=== PATIENT | male | born 1955 | race Caucasian/White ===

== ENCOUNTER 2019-03-05 08:49 | Emergency (ER) | payer OTHER ==
[2019-03-05] MEDS ORDERED: Penicillin V Potassium 250 MG Tab PO ONE (09:15)
--- NOTE | 2019-03-05 09:21 | EDM.PDOC ---
ED HPI GENERAL MEDICAL PROBLEM - General Chief Complaint: General Stated Complaint: sweeling Time Seen by Provider: 03/05/19 09:10 Source of Information: Reports: Patient History Limitations: Reports: No Limitations - History of Present Illness INITIAL COMMENTS - FREE TEXT/NARRATIVE: 63 yo male here with R facial swelling. He denies pain. The staff at [facility] where he resides became aware of this today and sent him to the ER. No fever reported. Has no complaint of pain. Has a bushy torres so this problem may have been brewing for awhile, not evident. It was reported that his R hand was also swollen, but patient states this is the way the hand always looks. Onset: Gradual Duration: Day(s):, Getting Worse Location: Reports: Face (R side) Quality: Reports: Other (denies pain) Severity: Moderate Improves with: Reports: None Worsens with: Reports: Other (time) Context: Reports: Other (see HPI) Associated Symptoms: Reports: No Other Symptoms. Denies: Fever/Chills Treatments RECORD KEEPER: Reports: Other (see below) (none) - Related Data Allergies Allergy/AdvReac Type Severity Reaction Status Date / Time indomethacin Allergy Cannot Verified 03/05/19 09:05 Remember perphenazine Allergy Cannot Verified 03/05/19 09:05 Remember Home Meds: Home Meds Aspirin [Halfprin] 1 tab PO DAILY 03/05/19 [History] Cholecalciferol (Vitamin D3) [Vitamin D3] 1 tab PO DAILY 03/05/19 [History] Docusate Sodium [Colace] 1 cap PO DAILY 03/05/19 [History] Lisinopril 1 tab PO DAILY 03/05/19 [History] [place] Carbonate [Eskalith CR] 900 mg PO BEDTIME 03/05/19 [History] Multivitamins/Min/Ca/FA/Iron [Thera-M] 1 tab PO DAILY 03/05/19 [History] Pantoprazole [ProTONIX] 1 tab PO BEDTIME 03/05/19 [History] atorvaSTATin [Lipitor] 1 tab PO BEDTIME 03/05/19 [History] cloZAPine 400 mg PO BEDTIME 03/05/19 [History] metFORMIN HCl [Metformin HCl] 1 tab PO BID 03/05/19 [History] Past Medical History HEENT History: Reports: Impaired Vision Endocrine/Metabolic History: Reports: Obesity/BMI 30+ - Past Surgical History Head Surgeries/Procedures: Reports: None HEENT Surgical History: Reports: None Endocrine Surgical History: Reports: None Dermatological Surgical History: Reports: None Social & Family History - Tobacco Use Smoking Status *Q: Former Smoker Used Tobacco, but Quit: Yes Month/Year Tobacco Last Used: 2014 Second Hand Smoke Exposure: No - Caffeine Use Caffeine Use: Reports: Coffee - Recreational Drug Use Recreational Drug Use: No ED ROS GENERAL - Review of Systems Review Of Systems: ROS reveals no pertinent complaints other than HPI. Constitutional: Reports: No Symptoms HEENT: Reports: Other (R facial swelling). Denies: Dental Pain Respiratory: Reports: No Symptoms Skin: Reports: No Symptoms Neurological: Reports: No Symptoms ED EXAM, GENERAL - Physical Exam Exam: See Below Exam Limited By: No Limitations General Appearance: Alert, WD/WN, No Apparent Distress, Obese Eye Exam: Bilateral Eye: Normal Inspection, PERRL Ears: Normal External Exam, Normal Canal, Hearing Grossly Normal, Normal TMs Ear Exam: Bilateral Ear: Auricle Normal, Canal Normal Nose: Normal Inspection, No Blood Throat/Mouth: Normal Inspection, Normal Lips, Normal Oropharynx, Normal Voice, No Airway Compromise, Other (R posterior most molar is decayed nearly to the gum line and corresponds with area of swelling of the R mandible.). No: Normal Teeth Head: Atraumatic, Normocephalic Neck: Normal Inspection Respiratory/Chest: No Respiratory Distress, Lungs Clear, Normal Breath Sounds, No Accessory Muscle Use Cardiovascular: Regular Rate, Rhythm, No Edema Extremities: Normal Inspection Neurological: Alert, Oriented, CN II-XII Intact, Normal Cognition, No Motor/ Sensory Deficits Psychiatric: Normal Affect, Normal Mood Skin Exam: Warm, Dry, Intact, Normal Color, No Rash Course - Vital Signs Last Recorded V/S: Last Vital Signs Temp 36.2 C 03/05/19 08:52 Pulse 72 03/05/19 08:52 Resp 16 03/05/19 08:52 BP 151/65 H 03/05/19 08:52 Pulse Ox 97 03/05/19 08:52 - Orders/Labs/Meds Orders: Active Orders 24 hr Category Date Time Status Penicillin V Potassium [Veetids] Med 03/05/19 09:15 Once 500 mg PO ONETIME ONE Medication Orders Penicillin V Potassium (Veetids) 500 mg PO ONETIME ONE Stop: 03/05/19 09:16 Meds: Medications Generic Name Dose Route Start Last Admin Trade Name Ottoniel PRN Reason Stop Dose Admin Penicillin V Potassium 500 mg 03/05/19 09:15 Veetids PO 03/05/19 09:16 ONETIME ONE Departure - Departure Time of Disposition: 09:25 Disposition: Home, Self-Care 01 Condition: Fair Clinical Impression: Dental abscess - Discharge Information *PRESCRIPTION DRUG MONITORING PROGRAM REVIEWED*: No *COPY OF PRESCRIPTION DRUG MONITORING REPORT IN PATIENT LULÚ: No Instructions: Dental Abscess Referrals: PCP,None [Primary Care Provider] - Additional Instructions: Give Penicillin every 6 hrs until gone. Will need dental recheck in 10 days. Acetaminophen as needed for pain relief. Recheck with primary care provider sooner if worse. - My Orders Last 24 Hours: My Active Orders 03/05/19 09:15 Penicillin V Potassium [Veetids] 500 mg PO ONETIME ONE - Assessment/Plan Last 24 Hours: My Active Orders 03/05/19 09:15 Penicillin V Potassium [Veetids] 500 mg PO ONETIME ONE
== END 2019-03-05 10:45 | disposition home or self-care (01) ==
LOC: JP.ED 08:49
DX: K04.7 Periapical abscess without sinus (principal); K02.9 Dental caries, unspecified; E66.9 Obesity, unspecified; Z88.6 Allergy status to analgesic agent; Z87.891 Personal history of nicotine dependence; Z79.82 Long term (current) use of aspirin; Z68.34 Body mass index [BMI] 34.0-34.9, adult; Z79.899 Other long term (current) drug therapy
CPT/HCPCS: 99283; A9270

== ENCOUNTER 2020-05-08 10:50 | Inpatient (IN) | payer OTHER, MEDICARE ==
--- NOTE | 2020-05-08 11:27 | EDM.PDOC ---
ED HPI GENERAL MEDICAL PROBLEM - General Chief Complaint: Neuro Symptoms/Deficits Stated Complaint: fell at home Time Seen by Provider: 05/08/20 11:16 Source of Information: Reports: Patient, RN Notes Reviewed History Limitations: Reports: No Limitations - History of Present Illness INITIAL COMMENTS - FREE TEXT/NARRATIVE: 64-year-old gentleman presents emergency department today via EMS services for fall unknown duration he is a resident of [facility] and staff say he has been more weak than usual usually cares for himself and can ambulate without difficulty however it took two individuals to help load him into the cot for the ambulance. [place] stroke scale was negative per EMS. He has no complaints at this time denies any fevers nausea vomiting shortness of breath chest pain no weakness he does have difficulty finding words but he states this is his normal baseline, positive for COVID-19 30 days ago Headache Pain Score (Numeric/FACES): 3 - Related Data Allergies Allergy/AdvReac Type Severity Reaction Status Date / Time indomethacin Allergy Cannot Verified 05/08/20 10:53 Remember perphenazine Allergy Cannot Verified 05/08/20 10:53 Remember Home Meds: Home Meds Aspirin [Halfprin] 81 mg PO DAILY 03/05/19 [History] Cholecalciferol (Vitamin D3) [Vitamin D3] 2,000 unit PO DAILY 03/05/19 [History] Docusate Sodium [Colace] 100 mg PO DAILY 03/05/19 [History] [place] Carbonate [Eskalith CR] 750 mg PO BEDTIME 03/05/19 [History] Pantoprazole [ProTONIX] 40 mg PO BEDTIME 03/05/19 [History] atorvaSTATin [Lipitor] 20 mg PO BEDTIME 03/05/19 [History] cloZAPine 400 mg PO BEDTIME 03/05/19 [History] lisinopriL [Lisinopril] 40 mg PO DAILY 03/05/19 [History] metFORMIN HCl [Metformin HCl] 1,000 mg PO BID 03/05/19 [History] Ascorbic Acid [Vitamin C] 500 mg PO BID 05/08/20 [History] Blood-Glucose Control, Low [True Metrix] 1 each PO DAILY 05/08/20 [History] Multivitamins/Min/Ca/FA/Iron [Thera-M] 1 tab PO DAILY 12/23/20 [History] Zinc 50 mg PO DAILY 05/08/20 [History] diazePAM [Valium] 10 mg PO ASDIRECTED PRN 05/08/20 [History] Past Medical History HEENT History: Reports: Impaired Vision Cardiovascular History: Reports: Hypertension Gastrointestinal History: Reports: GERD Musculoskeletal History: Reports: Gout Psychiatric History: Reports: Addiction, Bipolar, Schizophrenia, Suicide Attempt Endocrine/Metabolic History: Reports: Diabetes, Type II, Obesity/BMI 30+ - Infectious Disease History Infectious Disease History: Reports: Chicken Pox, Mumps, Novel Coronavirus, Other (See Below) (COVID-19) - Past Surgical History Head Surgeries/Procedures: Reports: None HEENT Surgical History: Reports: None Cardiovascular Surgical History: Reports: None GI Surgical History: Reports: None Endocrine Surgical History: Reports: None Musculoskeletal Surgical History: Reports: None Dermatological Surgical History: Reports: None Social & Family History - Tobacco Use Tobacco Use Status *Q: Never Tobacco User - Caffeine Use Caffeine Use: Reports: Soda - Recreational Drug Use Recreational Drug Use: No ED ROS GENERAL - Review of Systems Review Of Systems: See Below Constitutional: Reports: Weakness, Fatigue. Denies: Fever, Chills HEENT: Reports: No Symptoms Respiratory: Reports: No Symptoms Cardiovascular: Reports: No Symptoms GI/Abdominal: Reports: No Symptoms : Reports: No Symptoms Musculoskeletal: Reports: No Symptoms Skin: Reports: No Symptoms Neurological: Reports: No Symptoms ED EXAM, GENERAL - Physical Exam Exam: See Below Exam Limited By: Physical Impairment (Difficulty finding words) General Appearance: Alert, WD/WN, No Apparent Distress Respiratory/Chest: No Respiratory Distress, Lungs Clear, Normal Breath Sounds, No Accessory Muscle Use, Chest Non-Tender Cardiovascular: Regular Rate, Rhythm, No Murmur GI/Abdominal: Soft, Non-Tender Course - Vital Signs Last Recorded V/S: Last Vital Signs Temp 100 F 05/08/20 11:01 Pulse 92 05/08/20 11:01 Resp 15 05/08/20 11:01 BP 145/75 H 05/08/20 11:01 Pulse Ox 97 05/08/20 11:01 - Orders/Labs/Meds Orders: Active Orders 24 hr Category Date Time Status CULTURE URINE [RM] Urgent Lab 05/08/20 12:33 Received cefTRIAXone [Rocephin] 1 gm Med 05/08/20 13:18 Ordered Sodium Chloride 0.9% [Normal Saline] 50 ml IV ONETIME Medication Orders Ceftriaxone Sodium 1 gm/ (Sodium Chloride) 50 mls @ 100 mls/hr IV ONETIME ONE Stop: 05/08/20 13:47 Labs: Laboratory Tests 05/08/20 05/08/20 05/08/20 Range/Units 11:36 11:38 11:38 WBC 18.6 H (4.5-11.0) K/uL RBC 4.34 (4.30-5.90) M/uL Hgb 11.9 L (12.0-15.0) g/dL Hct 36.5 L (40.0-54.0) % MCV 84 (80-98) fL MCH 27 (27-31) pg MCHC 33 (32-36) % Plt Count 191 (150-400) K/uL Neut % (Auto) 80 H (36-66) % Lymph % (Auto) 9 L (24-44) % [place] % (Auto) 9 H (2-6) % Eos % (Auto) 1 L (2-4) % Baso % (Auto) 0 (0-1) % Sodium 137 L (140-148) mmol/L Potassium 4.3 (3.6-5.2) mmol/L Chloride 102 (100-108) mmol/L Carbon Dioxide 25 (21-32) mmol/L Anion Gap 14.3 H (5.0-14.0) mmol/L BUN 15 (7-18) mg/dL Creatinine 1.3 (0.8-1.3) mg/dL Est Cr Clr Drug Dosing 63.84 mL/min Estimated GFR (MDRD) 56 L (>60) Glucose 157 H (74-106) mg/dL Calcium 9.3 (8.5-10.1) mg/dL Total Bilirubin 0.5 D (0.2-1.0) mg/dL AST 13 L (15-37) U/L ALT 30 (12-78) U/L Alkaline Phosphatase 74 (46-116) U/L Troponin I < 0.017 (0.000-0.056) ng/mL Total Protein 6.7 (6.4-8.2) g/dL Albumin 3.4 (3.4-5.0) g/dL Globulin 3.3 (2.3-3.5) g/dL Albumin/Globulin Ratio 1.0 L (1.2-2.2) Urine Color Yellow (YELLOW) Urine Appearance Clear (CLEAR) Urine pH 5.5 (5.0-8.0) Ur Specific Russell 1.020 (1.008-1.030) Urine Protein Negative (NEGATIVE) mg/dL Urine Glucose (UA) Negative (NEGATIVE) mg/dL Urine Ketones Negative (NEGATIVE) mg/dL Urine Occult Blood Negative (NEGATIVE) Urine Nitrite Negative (NEGATIVE) Urine Bilirubin Negative (NEGATIVE) Urine Urobilinogen 0.2 (0.2-1.0) EU/dL Ur Leukocyte Esterase Small H (NEGATIVE) Urine RBC 0-5 (0-5) Urine WBC 10-20 H (0-5) Ur Epithelial Cells Not seen Amorphous Sediment Not seen Urine Bacteria Moderate Urine Mucus Not seen Meds: Medications Generic Name Dose Route Start Last Admin Trade Name Freq PRN Reason Stop Dose Admin Ceftriaxone Sodium 1 gm/ 50 mls @ 100 mls/hr 05/08/20 13:18 Sodium Chloride IV 05/08/20 13:47 ONETIME ONE Departure - Departure Time of Disposition: 13:21 Disposition: Admitted As Inpatient 67 Condition: Fair Clinical Impression: UTI (urinary tract infection) Qualifiers: Urinary tract infection type: acute cystitis Hematuria presence: without hematuria Qualified Code(s): N30.00 - Acute cystitis without hematuria - Discharge Information Referrals: PCP,None [Primary Care Provider] - Forms: ED Department Discharge Sepsis Event Note (ED) - Evaluation Sepsis Screening Result: No Definite Risk - Focused Exam Vital Signs: Vital Signs Temp Pulse Resp BP Pulse Ox 05/08/20 11:01 100 F 92 15 145/75 H 97 05/08/20 10:53 100 F 92 15 145/75 H 97 - My Orders Last 24 Hours: My Active Orders 05/08/20 12:33 CULTURE URINE [RM] Urgent 05/08/20 13:18 cefTRIAXone [Rocephin] 1 gm Sodium Chloride 0.9% [Normal Saline] 50 ml IV ONETIME - Assessment/Plan Last 24 Hours: My Active Orders 05/08/20 12:33 CULTURE URINE [RM] Urgent 05/08/20 13:18 cefTRIAXone [Rocephin] 1 gm Sodium Chloride 0.9% [Normal Saline] 50 ml IV ONETIME Plan: Assessment Acuity = acute Site and laterality = urinary tract infection complicating the patient with kno wn history of schizophrenia and cognitive impairment Etiology = probable bacterial cause Manifestations = weakness Location of injury = Home Lab values = CBC reveals a WBC elevated 18.6 consistent with leukocytosis, CMP unremarkable troponin was negative urinalysis reveals small amount leukocyte Estrace 10-20 WBCs consistent with pyuria cultures pending Plan Call discussed case with hospitalist on-call at 1320 kindly agreed to come evaluate the patient emergency department for admission 1 g Rocephin initiated in the ED This note was dictated using [employer] voice recognition software please call with any questions on syntax or grammar.
[2020-05-08] MEDS ORDERED: cefTRIAXone 1 GM in Sodium Chloride 0.9% 50 ML IV ONE (13:18)
--- NOTE | 2020-05-08 13:34 | PCM.HP.2 ---
H&P History of Present Illness - General Date of Service: 05/08/20 Admit Problem/Dx: Admission Diagnosis/Problem Admission Diagnosis/Problem Urinary tract infection Source of Information: Provider, RN Notes Reviewed. No: Patient History Limitations: Reports: Altered Mental Status (Dementia, confusion) - History of Present Illness Initial Comments - Free Text/Narative: Mr. Cabral is a 64-year-old gentleman who was admitted through the emergency department with increased weakness and fever, secondary to right lung pneumonia. Staff at his assisted living facility had noted marked weakness this morning and he was brought into the emergency department for further evaluation. He has a history of schizophrenia as well as developing dementia with confusion and is unable to provide a meaningful history concerning recent symptoms or review of systems. White blood cell count was noted to be elevated. Urine did show elevation in white blood cells but otherwise no obvious evidence of infection. After admission he did develop significant temperature elevation and blood cultures have been obtained in addition to the previously ordered urine culture. Chest x-ray shows evidence of right lung infiltrate at the base consistent with pneumonia. Headache Pain Score (Numeric/FACES): 3 - Related Data Allergies/Adverse Reactions: Allergies Allergy/AdvReac Type Severity Reaction Status Date / Time indomethacin Allergy Cannot Verified 05/08/20 10:53 Remember perphenazine Allergy Cannot Verified 05/08/20 10:53 Remember Home Medications: Home Meds Aspirin [Halfprin] 81 mg PO DAILY 03/05/19 [History] Cholecalciferol (Vitamin D3) [Vitamin D3] 2,000 unit PO DAILY 03/05/19 [History] Docusate Sodium [Colace] 100 mg PO DAILY 03/05/19 [History] H[place]ley Carbonate [Eskalith CR] 450 mg PO BEDTIME 03/05/19 [History] Pantoprazole [ProTONIX] 40 mg PO BEDTIME 03/05/19 [History] atorvaSTATin [Lipitor] 20 mg PO BEDTIME 03/05/19 [History] cloZAPine 400 mg PO BEDTIME 03/05/19 [History] lisinopriL [Lisinopril] 40 mg PO DAILY 03/05/19 [History] metFORMIN HCl [Metformin HCl] 1,000 mg PO BID 03/05/19 [History] Ascorbic Acid [Vitamin C] 500 mg PO BID 05/08/20 [History] Blood-Glucose Control, Low [True Metrix] 1 each PO DAILY 05/08/20 [History] Hensley Carbonate 300 mg PO BEDTIME 05/08/20 [History] Multivitamins/Min/Ca/FA/Iron [Thera-M] 1 tab PO DAILY 05/08/20 [History] Zinc 50 mg PO DAILY 05/08/20 [History] diazePAM [Valium] 10 mg PO ASDIRECTED PRN 05/08/20 [History] Past Medical History HEENT History: Reports: Impaired Vision Cardiovascular History: Reports: Hypertension Gastrointestinal History: Reports: GERD Musculoskeletal History: Reports: Gout Psychiatric History: Reports: Addiction, Bipolar, Schizophrenia, Suicide Attempt Endocrine/Metabolic History: Reports: Diabetes, Type II, Obesity/BMI 30+ - Infectious Disease History Infectious Disease History: Reports: Chicken Pox, Mumps, Novel Coronavirus, Other (See Below) (COVID-19) - Past Surgical History Head Surgeries/Procedures: Reports: None HEENT Surgical History: Reports: None Cardiovascular Surgical History: Reports: None GI Surgical History: Reports: None Endocrine Surgical History: Reports: None Musculoskeletal Surgical History: Reports: None Dermatological Surgical History: Reports: None Social & Family History - Tobacco Use Tobacco Use Status *Q: Never Tobacco User - Caffeine Use Caffeine Use: Reports: Soda - Recreational Drug Use Recreational Drug Use: No H&P Review of Systems - Review of Systems: Review Of Systems: See Below General: Reports: ROS unobtainable (Secondary to dementia with confusion) Exam - Exam Exam: See Below - Vital Signs Vital Signs: Last Vital Signs Temp 100 F 05/08/20 11:01 Pulse 92 05/08/20 11:01 Resp 15 05/08/20 11:01 BP 145/75 H 05/08/20 11:01 Pulse Ox 97 05/08/20 11:01 Weight: 230 lb - Exam Quality Assessment: DVT Prophylaxis General: Alert, Cooperative, Mild Distress. No: Oriented HEENT: Conjunctiva Clear, Hearing Intact, Mucosa Moist & [place], Normal Nasal Septum, Posterior Pharynx Clear, Pupils Equal Neck: Supple, Trachea Midline, +2 Carotid Pulse wo Bruit Lungs: Clear to Auscultation, Normal Respiratory Effort, Decreased Breath Sounds. No: Rales, Rhonchi, Wheezing Cardiovascular: Regular Rate, Regular Rhythm, Normal S1, Normal S2. No: Systolic Murmur, Diastolic Murmur GI/Abdominal Exam: Soft, Non-Tender, No Organomegaly, No Distention Back Exam: Normal Inspection, Full Range of Motion Extremities: Non-Tender, No Pedal Edema Skin: Warm, Dry Neurological: Cranial Nerves Intact, Strength Equal Bilateral, Normal Speech, Normal Tone, Sensation Intact. No: Focal Deficit Neuro Extensive - Mental Status: Alert, Disorientation to Place, Disorientation to Time, Memory Loss-Remote Events, Memory Loss-Recent Events. No: Oriented x3, Normal Cognition, Memory Intact - Patient Data Lab Results Last 24 hrs: Laboratory Results - last 24 hr 05/08/20 05/08/20 05/08/20 Range/Units 11:36 11:38 11:38 WBC 18.6 H (4.5-11.0) K/uL RBC 4.34 (4.30-5.90) M/uL Hgb 11.9 L (12.0-15.0) g/dL Hct 36.5 L (40.0-54.0) % MCV 84 (80-98) fL MCH 27 (27-31) pg MCHC 33 (32-36) % Plt Count 191 (150-400) K/uL Neut % (Auto) 80 H (36-66) % Lymph % (Auto) 9 L (24-44) % [place] % (Auto) 9 H (2-6) % Eos % (Auto) 1 L (2-4) % Baso % (Auto) 0 (0-1) % Sodium 137 L (140-148) mmol/L Potassium 4.3 (3.6-5.2) mmol/L Chloride 102 (100-108) mmol/L Carbon Dioxide 25 (21-32) mmol/L Anion Gap 14.3 H (5.0-14.0) mmol/L BUN 15 (7-18) mg/dL Creatinine 1.3 (0.8-1.3) mg/dL Est Cr Clr Drug Dosing 63.84 mL/min Estimated GFR (MDRD) 56 L (>60) Glucose 157 H (74-106) mg/dL Calcium 9.3 (8.5-10.1) mg/dL Total Bilirubin 0.5 D (0.2-1.0) mg/dL AST 13 L (15-37) U/L ALT 30 (12-78) U/L Alkaline Phosphatase 74 (46-116) U/L Troponin I < 0.017 (0.000-0.056) ng/mL Total Protein 6.7 (6.4-8.2) g/dL Albumin 3.4 (3.4-5.0) g/dL Globulin 3.3 (2.3-3.5) g/dL Albumin/Globulin Ratio 1.0 L (1.2-2.2) Urine Color Yellow (YELLOW) Urine Appearance Clear (CLEAR) Urine pH 5.5 (5.0-8.0) Ur Specific [place] 1.020 (1.008-1.030) Urine Protein Negative (NEGATIVE) mg/dL Urine Glucose (UA) Negative (NEGATIVE) mg/dL Urine Ketones Negative (NEGATIVE) mg/dL Urine Occult Blood Negative (NEGATIVE) Urine Nitrite Negative (NEGATIVE) Urine Bilirubin Negative (NEGATIVE) Urine Urobilinogen 0.2 (0.2-1.0) EU/dL Ur Leukocyte Esterase Small H (NEGATIVE) Urine RBC 0-5 (0-5) Urine WBC 10-20 H (0-5) Ur Epithelial Cells Not seen Amorphous Sediment Not seen Urine Bacteria Moderate Urine Mucus Not seen Result Diagrams: 05/08/20 11:38 05/08/20 11:38 Sepsis Event Note - Evaluation Sepsis Screening Result: No Definite Risk - Focused Exam Vital Signs: Vital Signs Temp Pulse Resp BP Pulse Ox 05/08/20 11:01 100 F 92 15 145/75 H 97 05/08/20 10:53 100 F 92 15 145/75 H 97 *Q Meaningful Use (ADM) - VTE Risk Assess *Q Each Risk Factor Represents 1 Point: Obesity ( BMI > 25 kg/m2), Serious lung disease including pneumonia Total Score 1 Point Risk Factors: 2 Each Risk Factor Represents 2 Points: Age 60 - 74 Years Total Score 2 Point Risk Factors: 2 Each Risk Factor Represents 3 Points: None Total Score 3 Point Risk Factors: 0 Each Risk Factor Represents 5 Points: None Total Score 5 Point Risk Factors: 0 Venous Thromboembolism Risk Factor Score *Q: 4 Problem List Initiated/Reviewed/Updated: Yes Orders Last 24hrs: Active Orders 24 hr Category Date Time Status Patient Status Manage Transfer [TRANSFER] Routine ADT 05/08/20 13:24 Ordered CULTURE URINE [RM] Urgent Lab 05/08/20 12:33 Received cefTRIAXone [Rocephin] 1 gm Med 05/08/20 13:18 Active Sodium Chloride 0.9% [Normal Saline] 50 ml IV ONETIME Resuscitation Status Routine Resus Stat 05/08/20 13:26 Ordered Medication Orders Ceftriaxone Sodium 1 gm/ (Sodium Chloride) 50 mls @ 100 mls/hr IV ONETIME ONE Stop: 05/08/20 13:47 Assessment/Plan Comment:: ASSESSMENT AND PLAN RIGHT LUNG PNEUMONIA-he had developed significant weakness over the last 24 hours with a fall earlier today at the assisted living facility. On evaluation in the emergency room there is evidence of right lung infiltrate as well as leukocytosis. Initially felt to have possible urinary tract infection and a urine culture is pending -Blood and urine culture pending -IV fluids for hydration -IV ceftriaxone and doxycycline TYPE 2 DIABETES MELLITUS -Continue Metformin -4 times daily glucometers -Low-dose sliding scale Humalog SCHIZOPHRENIA -Continue outpatient medications -Hensley level in a.m. DEMENTIA -Melatonin at bedtime MAINTENANCE ISSUES -DVT prophylaxis; Lovenox 40 mg subcu daily -GI prophylaxis; continue outpatient PPI therapy -[place] catheter; not indicated -Nutrition; consistent carb diet -Nicotine dependence; not required CODE STATUS-FULL CODE ADMISSION STATUS-patient will be admitted to inpatient status, expect at least a 2 night hospital stay for evaluation and management of problems as outlined above. At the time of this admission I do not reasonably expected evaluation and management of this problem will require more than a 96 hour hospital stay. DISPOSITION-anticipate discharge to home after the hospital stay. - Mortality Measure Prognosis:: Good
[2020-05-08] MEDS ORDERED: Glucose Gel 15 GM in 37.5 GM Tube PO PRN (14:27)
[2020-05-08] MEDS ORDERED: 50% Dextrose in Water 50 ML Syringe IV PRN (14:27)
[2020-05-08] MEDS ORDERED: Ondansetron 4 MG/2 ML SDV IV PRN (14:27)
[2020-05-08] MEDS ORDERED: Polyethylene Glycol 3350 Powder 17 GM Packet PO PRN (14:27)
[2020-05-08] MEDS ORDERED: Sodium Chloride 0.9% 10 ML Syringe FLUSH PRN (14:27)
[2020-05-08] MEDS: Sodium Chloride 0.9% 1,000 ML IV SCH (15:00)
[2020-05-08] MEDS: Enoxaparin 40 MG/0.4 ML Syringe SUBCUT SCH (15:00)
[2020-05-08] MEDS: Lactobacillus Rhamnosus GG (Probiotic) Cap PO SCH ×2 (15:00→21:09)
[2020-05-08] MEDS: Acetaminophen 325 MG Tab PO PRN (15:03)
[2020-05-08] MEDS: Doxycycline 100 MG in Sodium Chloride 0.9% 100 ML IV SCH (17:50)
[2020-05-08] MEDS: metFORMIN 500 MG Tab PO SCH (18:02)
[2020-05-08] MEDS: Insulin Lispro 100 Unit/ML 3 ML KwikPen SUBCUT SCH ×2 (18:03→21:15)
[2020-05-08] MEDS: CLOZAPINE 100 MG PO SCH (21:03)
[2020-05-08] MEDS: LITHIUM CARB PO SCH (21:05)
[2020-05-08] MEDS: Melatonin 3 MG Tab PO SCH (21:09)
[2020-05-08] MEDS: atorvaSTATin 20 MG Tab PO SCH (21:09)
[2020-05-08] MEDS: Pantoprazole 40 MG Tab.CR PO SCH (21:09)
[2020-05-09] MEDS: Sodium Chloride 0.9% 1,000 ML IV SCH ×2 (01:04→08:57)
[2020-05-09] MEDS: Doxycycline 100 MG in Sodium Chloride 0.9% 100 ML IV SCH (05:52)
[2020-05-09] MEDS ORDERED: diphenhydrAMINE 50 MG/ML SDV IVPUSH PRN (06:17)
[2020-05-09] MEDS ORDERED: methylPREDNISolone Sodium Succinate 40 MG/1 ML SDV IVPUSH ONE (06:36)
[2020-05-09] MEDS ORDERED: methylPREDNISolone Sodium Succinate 40 MG/1 ML SDV IVPUSH SCH (06:45)
[2020-05-09] MEDS: Insulin Lispro 100 Unit/ML 3 ML KwikPen SUBCUT SCH ×4 (08:21→21:31)
[2020-05-09] MEDS: Lisinopril 20 MG Tab PO SCH (08:48)
[2020-05-09] MEDS: Lactobacillus Rhamnosus GG (Probiotic) Cap PO SCH ×2 (08:48→21:29)
[2020-05-09] MEDS: Aspirin 81 MG Tab.EC PO SCH (08:48)
[2020-05-09] MEDS: metFORMIN 500 MG Tab PO SCH ×2 (08:48→16:02)
[2020-05-09] MEDS: Docusate Sodium 100 MG Cap PO SCH (08:48)
--- NOTE | 2020-05-09 10:10 | PCM.PN ---
- General Info Date of Service: 05/09/20 Subjective Update: Overnight the patient had difficulty with a reaction to doxycycline. He had shortness of breath as well as tongue swelling and a rash. He received Benadryl and Solu-Medrol with resolution of symptoms. He does not feel short of breath and feels pretty much back to his usual self since that episode. Patient is quite weak but otherwise has been fairly well stable. He does not endorse shortness of breath or abdominal pain. He requires significant assistance for any activities. Urine culture is growing a gram-negative chris. He has not been hypoxic. Functional Status: Reports: Pain Controlled - Review of Systems General: Reports: Weakness Pulmonary: Denies: Shortness of Breath - Patient Data Vitals - Most Recent: Last Vital Signs Temp 36.2 C 05/09/20 07:10 Pulse 81 05/09/20 07:10 Resp 22 H 05/09/20 07:10 BP 131/67 05/09/20 08:48 Pulse Ox 94 L 05/09/20 07:10 Weight - Most Recent: 103.011 kg I&O - Last 24 Hours: Intake & Output 05/08/20 05/09/20 05/09/20 22:59 06:59 14:59 Intake Total 100 1695 250 Output Total 450 125 250 Balance -350 1570 0 Lab Results Last 24 Hours: Laboratory Results - last 24 hr 05/08/20 05/08/20 05/08/20 Range/Units 11:36 11:38 11:38 WBC 18.6 H (4.5-11.0) K/uL RBC 4.34 (4.30-5.90) M/uL Hgb 11.9 L (12.0-15.0) g/dL Hct 36.5 L (40.0-54.0) % MCV 84 (80-98) fL MCH 27 (27-31) pg MCHC 33 (32-36) % Plt Count 191 (150-400) K/uL Neut % (Auto) 80 H (36-66) % Lymph % (Auto) 9 L (24-44) % [place] % (Auto) 9 H (2-6) % Eos % (Auto) 1 L (2-4) % Baso % (Auto) 0 (0-1) % Sodium 137 L (140-148) mmol/L Potassium 4.3 (3.6-5.2) mmol/L Chloride 102 (100-108) mmol/L Carbon Dioxide 25 (21-32) mmol/L Anion Gap 14.3 H (5.0-14.0) mmol/L BUN 15 (7-18) mg/dL Creatinine 1.3 (0.8-1.3) mg/dL Est Cr Clr Drug Dosing 63.84 mL/min Estimated GFR (MDRD) 56 L (>60) Glucose 157 H (74-106) mg/dL POC Glucose (74-106) MG/DL Calcium 9.3 (8.5-10.1) mg/dL Total Bilirubin 0.5 D (0.2-1.0) mg/dL AST 13 L (15-37) U/L ALT 30 (12-78) U/L Alkaline Phosphatase 74 (46-116) U/L Troponin I < 0.017 (0.000-0.056) ng/mL Total Protein 6.7 (6.4-8.2) g/dL Albumin 3.4 (3.4-5.0) g/dL Globulin 3.3 (2.3-3.5) g/dL Albumin/Globulin Ratio 1.0 L (1.2-2.2) Urine Color Yellow (YELLOW) Urine Appearance Clear (CLEAR) Urine pH 5.5 (5.0-8.0) Ur Specific [place] 1.020 (1.008-1.030) Urine Protein Negative (NEGATIVE) mg/dL Urine Glucose (UA) Negative (NEGATIVE) mg/dL Urine Ketones Negative (NEGATIVE) mg/dL Urine Occult Blood Negative (NEGATIVE) Urine Nitrite Negative (NEGATIVE) Urine Bilirubin Negative (NEGATIVE) Urine Urobilinogen 0.2 (0.2-1.0) EU/dL Ur Leukocyte Esterase Small H (NEGATIVE) Urine RBC 0-5 (0-5) Urine WBC 10-20 H (0-5) Ur Epithelial Cells Not seen Amorphous Sediment Not seen Urine Bacteria Moderate Urine Mucus Not seen 05/08/20 05/08/20 05/09/20 Range/Units 17:30 21:00 05:42 WBC 18.6 H (4.5-11.0) K/uL RBC 3.98 L (4.30-5.90) M/uL Hgb 11.1 L (12.0-15.0) g/dL Hct 34.1 L (40.0-54.0) % MCV 86 (80-98) fL MCH 28 (27-31) pg MCHC 33 (32-36) % Plt Count 169 (150-400) K/uL Neut % (Auto) 77 H (36-66) % Lymph % (Auto) 14 L (24-44) % [place] % (Auto) 9 H (2-6) % Eos % (Auto) 0 L (2-4) % Baso % (Auto) 0 (0-1) % Sodium (140-148) mmol/L Potassium (3.6-5.2) mmol/L Chloride (100-108) mmol/L Carbon Dioxide (21-32) mmol/L Anion Gap (5.0-14.0) mmol/L BUN (7-18) mg/dL Creatinine (0.8-1.3) mg/dL Est Cr Clr Drug Dosing mL/min Estimated GFR (MDRD) (>60) Glucose (74-106) mg/dL POC Glucose 176 H 179 H (74-106) MG/DL Calcium (8.5-10.1) mg/dL Total Bilirubin (0.2-1.0) mg/dL AST (15-37) U/L ALT (12-78) U/L Alkaline Phosphatase (46-116) U/L Troponin I (0.000-0.056) ng/mL Total Protein (6.4-8.2) g/dL Albumin (3.4-5.0) g/dL Globulin (2.3-3.5) g/dL Albumin/Globulin Ratio (1.2-2.2) Urine Color (YELLOW) Urine Appearance (CLEAR) Urine pH (5.0-8.0) Ur Specific [place] (1.008-1.030) Urine Protein (NEGATIVE) mg/dL Urine Glucose (UA) (NEGATIVE) mg/dL Urine Ketones (NEGATIVE) mg/dL Urine Occult Blood (NEGATIVE) Urine Nitrite (NEGATIVE) Urine Bilirubin (NEGATIVE) Urine Urobilinogen (0.2-1.0) EU/dL Ur Leukocyte Esterase (NEGATIVE) Urine RBC (0-5) Urine WBC (0-5) Ur Epithelial Cells Amorphous Sediment Urine Bacteria Urine Mucus 12/24/20 12/24/20 Range/Units 05:42 07:30 WBC (4.5-11.0) K/uL RBC (4.30-5.90) M/uL Hgb (12.0-15.0) g/dL Hct (40.0-54.0) % MCV (80-98) fL MCH (27-31) pg MCHC (32-36) % Plt Count (150-400) K/uL Neut % (Auto) (36-66) % Lymph % (Auto) (24-44) % [place] % (Auto) (2-6) % Eos % (Auto) (2-4) % Baso % (Auto) (0-1) % Sodium 140 (140-148) mmol/L Potassium 3.9 (3.6-5.2) mmol/L Chloride 106 (100-108) mmol/L Carbon Dioxide 26 (21-32) mmol/L Anion Gap 8.0 (5.0-14.0) mmol/L BUN 12 (7-18) mg/dL Creatinine 1.1 (0.8-1.3) mg/dL Est Cr Clr Drug Dosing 75.44 mL/min Estimated GFR (MDRD) > 60 (>60) Glucose 161 H (74-106) mg/dL POC Glucose 157 H (74-106) MG/DL Calcium 8.6 (8.5-10.1) mg/dL Total Bilirubin (0.2-1.0) mg/dL AST (15-37) U/L ALT (12-78) U/L Alkaline Phosphatase (46-116) U/L Troponin I (0.000-0.056) ng/mL Total Protein (6.4-8.2) g/dL Albumin (3.4-5.0) g/dL Globulin (2.3-3.5) g/dL Albumin/Globulin Ratio (1.2-2.2) Urine Color (YELLOW) Urine Appearance (CLEAR) Urine pH (5.0-8.0) Ur Specific [place] (1.008-1.030) Urine Protein (NEGATIVE) mg/dL Urine Glucose (UA) (NEGATIVE) mg/dL Urine Ketones (NEGATIVE) mg/dL Urine Occult Blood (NEGATIVE) Urine Nitrite (NEGATIVE) Urine Bilirubin (NEGATIVE) Urine Urobilinogen (0.2-1.0) EU/dL Ur Leukocyte Esterase (NEGATIVE) Urine RBC (0-5) Urine WBC (0-5) Ur Epithelial Cells Amorphous Sediment Urine Bacteria Urine Mucus [place] Results Last 24 Hours: Microbiology 05/08/20 12:33 Urine Culture - Preliminary Urine, Clean Catch Med Orders - Current: Current Medications Acetaminophen (Tylenol) 650 mg PO Q4H PRN PRN Reason: Pain (Mild 1-3)/fever Last Admin: 05/08/20 15:03 Dose: 650 mg Documented by: Aspirin (Halfprin) 81 mg PO DAILY [facility] Last Admin: 05/09/20 08:48 Dose: 81 mg Documented by: Atorvastatin Calcium (Lipitor) 20 mg PO BEDTIME [facility] Last Admin: 05/08/20 21:09 Dose: 20 mg Documented by: Dextrose (Glutose 15) 15 gm PO ONETIME PRN PRN Reason: Hypoglycemia Dextrose/Water (Dextrose 50% In Water) 50 ml IV ONETIME PRN PRN Reason: Hypoglycemia Diphenhydramine HCl (Benadryl) 25 mg IVPUSH Q4H PRN PRN Reason: Allergies Last Admin: 05/09/20 06:25 Dose: 25 mg Documented by: Docusate Sodium (Colace) 100 mg PO DAILY [facility] Last Admin: 05/09/20 08:48 Dose: 100 mg Documented by: Enoxaparin Sodium (Lovenox) 40 mg SUBCUT DAILY@1400 [facility] Last Admin: 05/08/20 15:00 Dose: 40 mg Documented by: Ceftriaxone Sodium 1 gm/ (Sodium Chloride) 50 mls @ 100 mls/hr IV Q24H [facility] Insulin Human Lispro (Humalog) 0 unit SUBCUT QIDACANDBED [facility]; Protocol Last Admin: 05/09/20 08:21 Dose: 1 unit Documented by: Lactobacillus Rhamnosus (Culturelle) 1 cap PO BID [facility] Last Admin: 05/09/20 08:48 Dose: 1 cap Documented by: Lisinopril (Prinivil) 40 mg PO DAILY [facility] Last Admin: 05/09/20 08:48 Dose: 40 mg Documented by: Melatonin (Melatonin) 9 mg PO BEDTIME [facility] Last Admin: 05/08/20 21:09 Dose: 9 mg Documented by: Metformin HCl (Glucophage) 1,000 mg PO BIDMEALS [facility] Last Admin: 05/09/20 08:48 Dose: 1,000 mg Documented by: (Clozapine [ Clozapine] 100mg * Pom* 0 mg PO BEDTIME [facility] Last Admin: 05/08/20 21:03 Dose: 400 mg Documented by: ([place] Carbonate [ Eskalith Cr] 450 Mg) *Pom* 0 mg PO BEDTIME [facility] Last Admin: 05/08/20 21:04 Dose: 450 mg Documented by: [place] Carb 300mg * (Pom*) 1 each PO BEDTIME [facility] Last Admin: 05/08/20 21:05 Dose: 1 each Documented by: Ondansetron HCl (Zofran) 4 mg IV Q4H PRN PRN Reason: Nausea/Vomiting Last Admin: 05/08/20 17:17 Dose: 4 mg Documented by: Pantoprazole Sodium (Protonix) 40 mg PO BEDTIME [facility] Last Admin: 05/08/20 21:09 Dose: 40 mg Documented by: Polyethylene Glycol (Miralax) 17 gm PO DAILY PRN PRN Reason: Constipation Sodium Chloride (Saline Flush) 10 ml FLUSH ASDIRECTED PRN PRN Reason: Keep Vein Open Discontinued Medications Ceftriaxone Sodium 1 gm/ (Sodium Chloride) 50 mls @ 100 mls/hr IV ONETIME ONE Stop: 05/08/20 13:47 Last Admin: 05/08/20 13:45 Dose: 100 mls/hr Documented by: Sodium Chloride (Normal Saline) 1,000 mls @ 125 mls/hr IV ASDIRECTED [facility] Last Admin: 05/09/20 08:57 Dose: 125 mls/hr Documented by: Doxycycline Hyclate 100 mg/ (Sodium Chloride) 100 mls @ 100 mls/hr IV Q12H [facility] Last Admin: 05/09/20 05:52 Dose: 100 mls/hr Documented by: Methylprednisolone Sodium Succinate (Solu-Medrol) 40 mg IVPUSH Q6H [facility] Methylprednisolone Sodium Succinate (Solu-Medrol) 40 mg IVPUSH ONETIME ONE Stop: 05/09/20 06:37 Last Admin: 05/09/20 06:30 Dose: 40 mg Documented by: - Exam Quality Assessment: No: Supplemental Oxygen General: Alert, Cooperative, No Acute Distress. No: Oriented Lungs: Clear to Auscultation, Normal Respiratory Effort. No: Crackles, Wheezing Cardiovascular: Regular Rate, Regular Rhythm GI/Abdominal Exam: Soft, No Distention Extremities: No Pedal Edema. No: Increased Warmth Skin: Warm, Dry Psy/Mental Status: Alert. No: Agitated Sepsis Event Note - Evaluation Sepsis Screening Result: Sepsis Risk - Focused Exam Vital Signs: Vital Signs Temp Pulse Resp BP BP BP Pulse Ox 05/09/20 08:48 131/67 05/09/20 07:10 36.2 C 81 22 H 131/67 94 L 05/09/20 06:51 37.0 C 81 22 H 133/55 L 93 L 05/09/20 03:00 37.7 C 82 18 124/59 L 90 L 05/08/20 22:37 37.3 C 82 16 138/60 90 L - Problem List Review Problem List Initiated/Reviewed/Updated: Yes - My Orders Last 24 Hours: My Active Orders 05/09/20 10:08 PT Evaluation and Treatment [CONS] Routine Convert IV to Saline Lock [OM.PC] Routine 05/10/20 05:00 BASIC METABOLIC PANEL,BMP [CHEM] Timed CBC W/O DIFF,HEMOGRAM [HEME] Timed (1) - Plan Plan:: ASSESSMENT AND PLAN ACUTE CYSTITIS-progressive weakness prior to admission. Urine culture growing a gram-negative chris. -Continue ceftriaxone -Follow-up urine culture -Physical therapy RIGHT LUNG PNEUMONIA, suspected-progressive weakness but no hypoxia or cough. Did not tolerate the doxycycline. -Follow-up blood cultures -Saline lock IV -IV ceftriaxone TYPE 2 DIABETES MELLITUS-mild elevation of sugars so far. 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 Quite weak. -Continue outpatient medications -[place] level in a.m. DEMENTIA -Melatonin at bedtime MAINTENANCE ISSUES -DVT prophylaxis; Lovenox 40 mg subcu daily -GI prophylaxis; continue outpatient PPI therapy -[place] catheter; not indicated -Nutrition; consistent carb diet DISPOSITION-anticipate discharge to home after the hospital stay.
[2020-05-09] MEDS: cefTRIAXone 1 GM in Sodium Chloride 0.9% 50 ML IV SCH (11:14)
[2020-05-09] MEDS: Enoxaparin 40 MG/0.4 ML Syringe SUBCUT SCH (15:40)
[2020-05-09] MEDS: CLOZAPINE 100 MG PO SCH (21:27)
[2020-05-09] MEDS: Pantoprazole 40 MG Tab.CR PO SCH (21:29)
[2020-05-09] MEDS: Melatonin 3 MG Tab PO SCH (21:29)
[2020-05-09] MEDS: LITHIUM CARB PO SCH (21:30)
[2020-05-09] MEDS: atorvaSTATin 20 MG Tab PO SCH (21:30)
[2020-05-10] MEDS: Docusate Sodium 100 MG Cap PO SCH (08:58)
[2020-05-10] MEDS: Insulin Lispro 100 Unit/ML 3 ML KwikPen SUBCUT SCH ×5 (08:58→22:01)
[2020-05-10] MEDS: Lisinopril 20 MG Tab PO SCH (08:58)
[2020-05-10] MEDS: Lactobacillus Rhamnosus GG (Probiotic) Cap PO SCH ×2 (08:58→20:08)
[2020-05-10] MEDS: Aspirin 81 MG Tab.EC PO SCH (08:58)
[2020-05-10] MEDS: metFORMIN 500 MG Tab PO SCH ×2 (08:58→17:02)
--- NOTE | 2020-05-10 11:25 | PCM.PN ---
- General Info Date of Service: 05/10/20 Subjective Update: Mr. Cabral has been stable since yesterday, no further temperature elevations. White blood cell count remains significantly elevated. Still denies respiratory symptoms, pansensitive E. coli is growing from urine. Functional Status: Reports: Tolerating Diet, Urinating. Denies: Ambulating - Review of Systems General: Reports: Weakness, Fatigue. Denies: Fever, Chills Pulmonary: Reports: No Symptoms Cardiovascular: Reports: No Symptoms Gastrointestinal: Reports: No Symptoms - Patient Data Vitals - Most Recent: Last Vital Signs Temp 98.2 F 05/10/20 07:00 Pulse 71 05/10/20 07:00 Resp 16 05/10/20 07:00 BP 149/64 H 05/10/20 08:58 Pulse Ox 96 05/10/20 07:00 Weight - Most Recent: 227 lb 1.606 oz I&O - Last 24 Hours: Intake & Output 05/09/20 05/10/20 05/10/20 22:59 06:59 14:59 Intake Total 860 1080 Output Total 700 300 Balance 160 780 Lab Results Last 24 Hours: Laboratory Results - last 24 hr 05/08/20 05/09/20 05/09/20 Range/Units 11:38 11:30 16:30 WBC (4.5-11.0) K/uL RBC (4.30-5.90) M/uL Hgb (12.0-15.0) g/dL Hct (40.0-54.0) % MCV (80-98) fL MCH (27-31) pg MCHC (32-36) % Plt Count (150-400) K/uL Sodium (140-148) mmol/L Potassium (3.6-5.2) mmol/L Chloride (100-108) mmol/L Carbon Dioxide (21-32) mmol/L Anion Gap (5.0-14.0) mmol/L BUN (7-18) mg/dL Creatinine (0.8-1.3) mg/dL Est Cr Clr Drug Dosing mL/min Estimated GFR (MDRD) (>60) Glucose (74-106) mg/dL POC Glucose 244 H 200 H (74-106) MG/DL Calcium (8.5-10.1) mg/dL [place] 0.8 (0.6-1.2) mmol/L 05/09/20 05/10/20 05/10/20 Range/Units 21:22 04:10 04:10 WBC 20.5 H (4.5-11.0) K/uL RBC 4.04 L (4.30-5.90) M/uL Hgb 11.0 L (12.0-15.0) g/dL Hct 35.1 L (40.0-54.0) % MCV 87 (80-98) fL MCH 27 (27-31) pg MCHC 31 L (32-36) % Plt Count 172 (150-400) K/uL Sodium 139 L (140-148) mmol/L Potassium 4.4 (3.6-5.2) mmol/L Chloride 105 (100-108) mmol/L Carbon Dioxide 23 (21-32) mmol/L Anion Gap 15.4 H (5.0-14.0) mmol/L BUN 19 H D (7-18) mg/dL Creatinine 1.2 (0.8-1.3) mg/dL Est Cr Clr Drug Dosing 69.25 mL/min Estimated GFR (MDRD) > 60 (>60) Glucose 164 H (74-106) mg/dL POC Glucose 176 H (74-106) MG/DL Calcium 8.7 (8.5-10.1) mg/dL [place] (0.6-1.2) mmol/L 05/10/20 Range/Units 07:30 WBC (4.5-11.0) K/uL RBC (4.30-5.90) M/uL Hgb (12.0-15.0) g/dL Hct (40.0-54.0) % MCV (80-98) fL MCH (27-31) pg MCHC (32-36) % Plt Count (150-400) K/uL Sodium (140-148) mmol/L Potassium (3.6-5.2) mmol/L Chloride (100-108) mmol/L Carbon Dioxide (21-32) mmol/L Anion Gap (5.0-14.0) mmol/L BUN (7-18) mg/dL Creatinine (0.8-1.3) mg/dL Est Cr Clr Drug Dosing mL/min Estimated GFR (MDRD) (>60) Glucose (74-106) mg/dL POC Glucose 156 H (74-106) MG/DL Calcium (8.5-10.1) mg/dL [place] (0.6-1.2) mmol/L [place]iven Results Last 24 Hours: Microbiology 05/08/20 17:28 Aerobic Blood Culture - Preliminary Blood - Venous - Iv Start NO GROWTH AFTER 1 DAY Anaerobic Blood Culture - Preliminary NO GROWTH AFTER 1 DAY 05/08/20 17:39 Aerobic Blood Culture - Preliminary Blood - Arm, Right NO GROWTH AFTER 1 DAY Anaerobic Blood Culture - Preliminary NO GROWTH AFTER 1 DAY 05/08/20 12:33 Urine Culture - Final Urine, Clean Catch Escherichia Coli Med Orders - Current: Current Medications Acetaminophen (Tylenol) 650 mg PO Q4H PRN PRN Reason: Pain (Mild 1-3)/fever Last Admin: 05/08/20 15:03 Dose: 650 mg Documented by: Aspirin (Halfprin) 81 mg PO DAILY [facility] Last Admin: 05/10/20 08:58 Dose: 81 mg Documented by: Atorvastatin Calcium (Lipitor) 20 mg PO BEDTIME [facility] Last Admin: 05/09/20 21:30 Dose: 20 mg Documented by: Dextrose (Glutose 15) 15 gm PO ONETIME PRN PRN Reason: Hypoglycemia Dextrose/Water (Dextrose 50% In Water) 50 ml IV ONETIME PRN PRN Reason: Hypoglycemia Diphenhydramine HCl (Benadryl) 25 mg IVPUSH Q4H PRN PRN Reason: Allergies Last Admin: 05/09/20 06:25 Dose: 25 mg Documented by: Docusate Sodium (Colace) 100 mg PO DAILY [facility] Last Admin: 05/10/20 08:58 Dose: 100 mg Documented by: Enoxaparin Sodium (Lovenox) 40 mg SUBCUT DAILY@1400 [facility] Last Admin: 05/09/20 15:40 Dose: 40 mg Documented by: Ceftriaxone Sodium 1 gm/ (Sodium Chloride) 50 mls @ 100 mls/hr IV Q24H [facility] Last Admin: 05/09/20 11:14 Dose: 100 mls/hr Documented by: Levofloxacin/Dextrose 750 mg/ (Premix) 150 mls @ 100 mls/hr IV Q24H [facility] Insulin Human Lispro (Humalog) 0 unit SUBCUT QIDACANDBED [facility]; Protocol Last Admin: 05/10/20 08:58 Dose: 1 unit Documented by: Lactobacillus Rhamnosus (Culturelle) 1 cap PO BID [facility] Last Admin: 05/10/20 08:58 Dose: 1 cap Documented by: Lisinopril (Prinivil) 40 mg PO DAILY [facility] Last Admin: 05/10/20 08:58 Dose: 40 mg Documented by: Melatonin (Melatonin) 9 mg PO BEDTIME [facility] Last Admin: 05/09/20 21:29 Dose: 9 mg Documented by: Metformin HCl (Glucophage) 1,000 mg PO BIDMEALS [facility] Last Admin: 05/10/20 08:58 Dose: 1,000 mg Documented by: (Clozapine [ Clozapine] 100mg * Pom* 0 mg PO BEDTIME [facility] Last Admin: 05/09/20 21:27 Dose: 400 mg Documented by: ([place] Carbonate [ Eskalith Cr] 450 Mg) *Pom* 0 mg PO BEDTIME [facility] Last Admin: 05/09/20 21:30 Dose: 450 mg Documented by: [place] Carb 300mg * (Pom*) 1 each PO BEDTIME [facility] Last Admin: 05/09/20 21:30 Dose: 1 each Documented by: Ondansetron HCl (Zofran) 4 mg IV Q4H PRN PRN Reason: Nausea/Vomiting Last Admin: 05/08/20 17:17 Dose: 4 mg Documented by: Pantoprazole Sodium (Protonix) 40 mg PO BEDTIME [facility] Last Admin: 05/09/20 21:29 Dose: 40 mg Documented by: Polyethylene Glycol (Miralax) 17 gm PO DAILY PRN PRN Reason: Constipation Last Admin: 05/10/20 09:25 Dose: 17 gm Documented by: Sodium Chloride (Saline Flush) 10 ml FLUSH ASDIRECTED PRN PRN Reason: Keep Vein Open Discontinued Medications Ceftriaxone Sodium 1 gm/ (Sodium Chloride) 50 mls @ 100 mls/hr IV ONETIME ONE Stop: 05/08/20 13:47 Last Admin: 05/08/20 13:45 Dose: 100 mls/hr Documented by: Sodium Chloride (Normal Saline) 1,000 mls @ 125 mls/hr IV ASDIRECTED [facility] Last Admin: 05/09/20 08:57 Dose: 125 mls/hr Documented by: Doxycycline Hyclate 100 mg/ (Sodium Chloride) 100 mls @ 100 mls/hr IV Q12H [facility] Last Admin: 05/09/20 05:52 Dose: 100 mls/hr Documented by: Methylprednisolone Sodium Succinate (Solu-Medrol) 40 mg IVPUSH Q6H [facility] Methylprednisolone Sodium Succinate (Solu-Medrol) 40 mg IVPUSH ONETIME ONE Stop: 05/09/20 06:37 Last Admin: 05/09/20 06:30 Dose: 40 mg Documented by: - Exam Quality Assessment: DVT Prophylaxis General: Alert, Oriented, Cooperative, Mild Distress Lungs: Clear to Auscultation, Normal Respiratory Effort Cardiovascular: Regular Rate, Regular Rhythm, No Murmurs GI/Abdominal Exam: Soft, Non-Tender, No Organomegaly, No Distention Extremities: Non-Tender, No Pedal Edema Sepsis Event Note - Evaluation Sepsis Screening Result: No Definite Risk - Focused Exam Vital Signs: Vital Signs Temp Pulse Resp BP BP BP Pulse Ox 05/10/20 08:58 149/64 H 05/10/20 07:00 98.2 F 71 16 149/64 H 96 05/10/20 03:00 97.0 F 64 18 133/61 98 - Problem List Review Problem List Initiated/Reviewed/Updated: Yes - My Orders Last 24 Hours: My Active Orders 05/09/20 12:00 cefTRIAXone [Rocephin] 1 gm Sodium Chloride 0.9% [Normal Saline] 50 ml IV Q24H 05/10/20 11:30 GLUCOSE POC LAB TO COLLECT JPM [POC] QIDACANDBED Levofloxacin/Dextrose 5%-Water [Levaquin in D5W 750 MG/150 ML] 750 mg Premix Bag 1 bag IV Q24H 05/10/20 16:30 GLUCOSE POC LAB TO COLLECT JPM [POC] QIDACANDBED 05/10/20 21:00 GLUCOSE POC LAB TO COLLECT JPM [POC] QIDACANDBED 05/11/20 05:00 BASIC METABOLIC PANEL,BMP [CHEM] Timed CBC WITH AUTO DIFF [HEME] Timed 05/11/20 07:30 GLUCOSE POC LAB TO COLLECT JPM [POC] QIDACANDBED 05/11/20 11:30 GLUCOSE POC LAB TO COLLECT JPM [POC] QIDACANDBED 05/11/20 16:30 GLUCOSE POC LAB TO COLLECT JPM [POC] QIDACANDBED 05/11/20 21:00 GLUCOSE POC LAB TO COLLECT JPM [POC] QIDACANDBED 05/12/20 07:30 GLUCOSE POC LAB TO COLLECT JPM [POC] QIDACANDBED 05/12/20 11:30 GLUCOSE POC LAB TO COLLECT JPM [POC] QIDACANDBED 05/12/20 16:30 GLUCOSE POC LAB TO COLLECT JPM [POC] QIDACANDBED 05/12/20 21:00 GLUCOSE POC LAB TO COLLECT JPM [POC] QIDACANDBED 05/13/20 07:30 GLUCOSE POC LAB TO COLLECT JPM [POC] QIDACANDBED 05/13/20 11:30 GLUCOSE POC LAB TO COLLECT JPM [POC] QIDACANDBED - Plan Plan:: ASSESSMENT AND PLAN ACUTE CYSTITIS-progressive weakness prior to admission. Urine culture has grown pansensitive E. coli, white blood cell count remains significantly elevated -Continue ceftriaxone -Physical therapy RIGHT LUNG PNEUMONIA, suspected-progressive weakness but no hypoxia or cough. Did not tolerate the doxycycline. -Follow-up blood cultures -Saline lock IV -IV ceftriaxone -IV Levaquin TYPE 2 DIABETES MELLITUS-mild elevation of sugars so far. 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 Quite weak. -Continue outpatient medications -[place] level in a.m. DEMENTIA -Melatonin at bedtime MAINTENANCE ISSUES -DVT prophylaxis; Lovenox 40 mg subcu daily -GI prophylaxis; continue outpatient PPI therapy -[place] catheter; not indicated -Nutrition; consistent carb diet DISPOSITION-anticipate discharge to home after the hospital stay.
[2020-05-10] MEDS: cefTRIAXone 1 GM in Sodium Chloride 0.9% 50 ML IV SCH (11:55)
[2020-05-10] MEDS: Levofloxacin/Dextrose 5%-Water 750 MG in Premix Bag 1 BAG IV SCH (13:05)
[2020-05-10] MEDS: Enoxaparin 40 MG/0.4 ML Syringe SUBCUT SCH (14:48)
[2020-05-10] MEDS: Melatonin 3 MG Tab PO SCH (20:07)
[2020-05-10] MEDS: atorvaSTATin 20 MG Tab PO SCH (20:08)
[2020-05-10] MEDS: Pantoprazole 40 MG Tab.CR PO SCH (20:08)
[2020-05-10] MEDS: CLOZAPINE 100 MG PO SCH (20:14)
[2020-05-10] MEDS: LITHIUM CARB PO SCH (20:16)
[2020-05-11] MEDS: Aspirin 81 MG Tab.EC PO SCH (09:22)
[2020-05-11] MEDS: Lisinopril 20 MG Tab PO SCH (09:22)
[2020-05-11] MEDS: Lactobacillus Rhamnosus GG (Probiotic) Cap PO SCH ×2 (09:22→21:13)
[2020-05-11] MEDS: Docusate Sodium 100 MG Cap PO SCH (09:22)
[2020-05-11] MEDS: Insulin Lispro 100 Unit/ML 3 ML KwikPen SUBCUT SCH ×4 (09:23→21:44)
[2020-05-11] MEDS: metFORMIN 500 MG Tab PO SCH ×2 (09:23→17:28)
[2020-05-11] MEDS: cefTRIAXone 1 GM in Sodium Chloride 0.9% 50 ML IV SCH (12:10)
[2020-05-11] MEDS: Levofloxacin/Dextrose 5%-Water 750 MG in Premix Bag 1 BAG IV SCH (12:51)
--- NOTE | 2020-05-11 14:15 | PCM.PN ---
- General Info Date of Service: 05/11/20 Subjective Update: Mr. Cabral has been stable over the last 24 hours. Vital signs have remained within desired range and he has been afebrile. Overall strength and appetite seem to be improving. White blood cell count remains elevated but improved over the past few days. Functional Status: Reports: Tolerating Diet, Urinating - Review of Systems General: Reports: Weakness, Fatigue. Denies: Fever, Chills Pulmonary: Reports: No Symptoms Cardiovascular: Reports: No Symptoms Gastrointestinal: Reports: No Symptoms - Patient Data Vitals - Most Recent: Last Vital Signs Temp 97.8 F 05/11/20 08:55 Pulse 62 05/11/20 08:28 Resp 18 05/11/20 08:28 BP 150/61 H 05/11/20 09:22 Pulse Ox 96 05/11/20 08:28 Weight - Most Recent: 227 lb 1.606 oz I&O - Last 24 Hours: Intake & Output 05/10/20 05/11/20 05/11/20 22:59 06:59 14:59 Intake Total 800 595 Output Total 300 Balance 800 295 Lab Results Last 24 Hours: Laboratory Results - last 24 hr 05/10/20 05/10/20 05/11/20 Range/Units 16:30 21:25 05:00 WBC 14.6 H (4.5-11.0) K/uL RBC 3.92 L (4.30-5.90) M/uL Hgb 10.9 L (12.0-15.0) g/dL Hct 33.9 L (40.0-54.0) % MCV 87 (80-98) fL MCH 28 (27-31) pg MCHC 32 (32-36) % Plt Count 204 (150-400) K/uL Neut % (Auto) 68 H (36-66) % Lymph % (Auto) 20 L (24-44) % [facility] % (Auto) 7 H (2-6) % Eos % (Auto) 5 H (2-4) % Baso % (Auto) 0 (0-1) % Sodium (140-148) mmol/L Potassium (3.6-5.2) mmol/L Chloride (100-108) mmol/L Carbon Dioxide (21-32) mmol/L Anion Gap (5.0-14.0) mmol/L BUN (7-18) mg/dL Creatinine (0.8-1.3) mg/dL Est Cr Clr Drug Dosing mL/min Estimated GFR (MDRD) (>60) Glucose (74-106) mg/dL POC Glucose 107 H 121 H (74-106) MG/DL Calcium (8.5-10.1) mg/dL 05/11/20 05/11/20 05/11/20 Range/Units 05:00 07:30 11:50 WBC (4.5-11.0) K/uL RBC (4.30-5.90) M/uL Hgb (12.0-15.0) g/dL Hct (40.0-54.0) % MCV (80-98) fL MCH (27-31) pg MCHC (32-36) % Plt Count (150-400) K/uL Neut % (Auto) (36-66) % Lymph % (Auto) (24-44) % [facility] % (Auto) (2-6) % Eos % (Auto) (2-4) % Baso % (Auto) (0-1) % Sodium 140 (140-148) mmol/L Potassium 4.4 (3.6-5.2) mmol/L Chloride 106 (100-108) mmol/L Carbon Dioxide 24 (21-32) mmol/L Anion Gap 9.8 (5.0-14.0) mmol/L BUN 23 H (7-18) mg/dL Creatinine 1.2 (0.8-1.3) mg/dL Est Cr Clr Drug Dosing 69.25 mL/min Estimated GFR (MDRD) > 60 (>60) Glucose 129 H (74-106) mg/dL POC Glucose 118 H 130 H (74-106) MG/DL Calcium 8.6 (8.5-10.1) mg/dL Estiven Results Last 24 Hours: Microbiology 05/08/20 17:28 Aerobic Blood Culture - Preliminary Blood - Venous - Iv Start NO GROWTH AFTER 2 DAYS Anaerobic Blood Culture - Preliminary NO GROWTH AFTER 2 DAYS 05/08/20 17:39 Aerobic Blood Culture - Preliminary Blood - Arm, Right NO GROWTH AFTER 2 DAYS Anaerobic Blood Culture - Preliminary NO GROWTH AFTER 2 DAYS Med Orders - Current: Current Medications Acetaminophen (Tylenol) 650 mg PO Q4H PRN PRN Reason: Pain (Mild 1-3)/fever Last Admin: 05/08/20 15:03 Dose: 650 mg Documented by: Aspirin (Halfprin) 81 mg PO DAILY ON LICENSE OF [facility] Last Admin: 05/11/20 09:22 Dose: 81 mg Documented by: Atorvastatin Calcium (Lipitor) 20 mg PO BEDTIME ON LICENSE OF [facility] Last Admin: 05/10/20 20:08 Dose: 20 mg Documented by: Dextrose (Glutose 15) 15 gm PO ONETIME PRN PRN Reason: Hypoglycemia Dextrose/Water (Dextrose 50% In Water) 50 ml IV ONETIME PRN PRN Reason: Hypoglycemia Diphenhydramine HCl (Benadryl) 25 mg IVPUSH Q4H PRN PRN Reason: Allergies Last Admin: 05/09/20 06:25 Dose: 25 mg Documented by: Docusate Sodium (Colace) 100 mg PO DAILY ON LICENSE OF [facility] Last Admin: 05/11/20 09:22 Dose: 100 mg Documented by: Enoxaparin Sodium (Lovenox) 40 mg SUBCUT DAILY@1400 ON LICENSE OF [facility] Last Admin: 05/10/20 14:48 Dose: 40 mg Documented by: Levofloxacin/Dextrose 750 mg/ (Premix) 150 mls @ 100 mls/hr IV Q24H ON LICENSE OF [facility] Last Admin: 05/11/20 12:51 Dose: 100 mls/hr Documented by: Insulin Human Lispro (Humalog) 0 unit SUBCUT QIDACANDBED ON LICENSE OF [facility]; Protocol Last Admin: 05/11/20 12:40 Dose: Not Given Documented by: Lactobacillus Rhamnosus (Culturelle) 1 cap PO BID ON LICENSE OF [facility] Last Admin: 05/11/20 09:22 Dose: 1 cap Documented by: Lisinopril (Prinivil) 40 mg PO DAILY ON LICENSE OF [facility] Last Admin: 05/11/20 09:22 Dose: 40 mg Documented by: Melatonin (Melatonin) 9 mg PO BEDTIME ON LICENSE OF [facility] Last Admin: 05/10/20 20:07 Dose: 9 mg Documented by: Metformin HCl (Glucophage) 1,000 mg PO BIDMEALS ON LICENSE OF [facility] Last Admin: 05/11/20 09:23 Dose: 1,000 mg Documented by: (Clozapine [ Clozapine] 100mg * Pom* 0 mg PO BEDTIME ON LICENSE OF [facility] Last Admin: 05/10/20 20:14 Dose: 400 mg Documented by: (Carlyss Carbonate [ Eskalith Cr] 450 Mg) *Pom* 0 mg PO BEDTIME ON LICENSE OF [facility] Last Admin: 05/10/20 20:16 Dose: 450 mg Documented by: Carlyss Carb 300mg * (Pom*) 1 each PO BEDTIME [facility] Last Admin: 05/10/20 20:16 Dose: 1 each Documented by: Ondansetron HCl (Zofran) 4 mg IV Q4H PRN PRN Reason: Nausea/Vomiting Last Admin: 05/08/20 17:17 Dose: 4 mg Documented by: Pantoprazole Sodium (Protonix) 40 mg PO BEDTIME [facility] Last Admin: 05/10/20 20:08 Dose: 40 mg Documented by: Polyethylene Glycol (Miralax) 17 gm PO DAILY PRN PRN Reason: Constipation Last Admin: 05/10/20 09:25 Dose: 17 gm Documented by: Sodium Chloride (Saline Flush) 10 ml FLUSH ASDIRECTED PRN PRN Reason: Keep Vein Open Discontinued Medications Ceftriaxone Sodium 1 gm/ (Sodium Chloride) 50 mls @ 100 mls/hr IV ONETIME ONE Stop: 05/08/20 13:47 Last Admin: 05/08/20 13:45 Dose: 100 mls/hr Documented by: Sodium Chloride (Normal Saline) 1,000 mls @ 125 mls/hr IV ASDIRECTED ON LICENSE OF [facility] Last Admin: 05/09/20 08:57 Dose: 125 mls/hr Documented by: Ceftriaxone Sodium 1 gm/ (Sodium Chloride) 50 mls @ 100 mls/hr IV Q24H ON LICENSE OF [facility] Last Admin: 05/11/20 12:10 Dose: 100 mls/hr Documented by: Doxycycline Hyclate 100 mg/ (Sodium Chloride) 100 mls @ 100 mls/hr IV Q12H ON LICENSE OF [facility] Last Admin: 05/09/20 05:52 Dose: 100 mls/hr Documented by: Methylprednisolone Sodium Succinate (Solu-Medrol) 40 mg IVPUSH Q6H ON LICENSE OF [facility] Methylprednisolone Sodium Succinate (Solu-Medrol) 40 mg IVPUSH ONETIME ONE Stop: 05/09/20 06:37 Last Admin: 05/09/20 06:30 Dose: 40 mg Documented by: - Exam Quality Assessment: DVT Prophylaxis General: Alert, Cooperative, Mild Distress Lungs: Clear to Auscultation, Normal Respiratory Effort Cardiovascular: Regular Rate, Regular Rhythm, No Murmurs GI/Abdominal Exam: Soft, Non-Tender, No Organomegaly, No Distention Extremities: Non-Tender, No Pedal Edema Sepsis Event Note - Evaluation Sepsis Screening Result: No Definite Risk - Focused Exam Vital Signs: Vital Signs Temp Temp Pulse Resp BP BP Pulse Ox 05/11/20 09:22 150/61 H 05/11/20 08:55 97.8 F 05/11/20 08:28 93.9 F L 62 18 150/61 H 96 05/11/20 02:24 96.0 F L 64 16 125/53 L 94 L - Problem List Review Problem List Initiated/Reviewed/Updated: Yes - My Orders Last 24 Hours: My Active Orders 05/11/20 16:30 GLUCOSE POC LAB TO COLLECT JPM [POC] QIDACANDBED 05/11/20 21:00 GLUCOSE POC LAB TO COLLECT JPM [POC] QIDACANDBED 05/12/20 05:00 CBC WITH AUTO DIFF [HEME] Timed 05/12/20 07:30 GLUCOSE POC LAB TO COLLECT JPM [POC] QIDACANDBED 05/12/20 11:30 GLUCOSE POC LAB TO COLLECT JPM [POC] QIDACANDBED 05/12/20 16:30 GLUCOSE POC LAB TO COLLECT JPM [POC] QIDACANDBED 05/12/20 21:00 GLUCOSE POC LAB TO COLLECT JPM [POC] QIDACANDBED 05/13/20 07:30 GLUCOSE POC LAB TO COLLECT JPM [POC] QIDACANDBED 05/13/20 11:30 GLUCOSE POC LAB TO COLLECT JPM [POC] QIDACANDBED - Plan Plan:: ASSESSMENT AND PLAN ACUTE CYSTITIS-progressive weakness prior to admission. Urine culture has grown pansensitive E. coli, white blood cell count remains significantly elevated -Continue levofloxacin -Physical therapy RIGHT LUNG PNEUMONIA, suspected-progressive weakness but no hypoxia or cough. -Follow-up blood cultures -Saline lock IV -IV Levaquin TYPE 2 DIABETES MELLITUS-mild elevation of sugars so far. 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 Quite weak. -Continue outpatient medications -Carlyss level in a.m. DEMENTIA -Melatonin at bedtime MAINTENANCE ISSUES -DVT prophylaxis; Lovenox 40 mg subcu daily -GI prophylaxis; continue outpatient PPI therapy -[facility] catheter; not indicated -Nutrition; consistent carb diet DISPOSITION-anticipate discharge to home after the hospital stay.
[2020-05-11] MEDS: Enoxaparin 40 MG/0.4 ML Syringe SUBCUT SCH (14:16)
[2020-05-11] MEDS: Acetaminophen 325 MG Tab PO PRN (20:25)
[2020-05-11] MEDS: CLOZAPINE 100 MG PO SCH (21:12)
[2020-05-11] MEDS: LITHIUM CARB PO SCH (21:13)
[2020-05-11] MEDS: atorvaSTATin 20 MG Tab PO SCH (21:13)
[2020-05-11] MEDS: Pantoprazole 40 MG Tab.CR PO SCH (21:14)
[2020-05-11] MEDS: Melatonin 3 MG Tab PO SCH (21:15)
[2020-05-12] MEDS: Insulin Lispro 100 Unit/ML 3 ML KwikPen SUBCUT SCH ×4 (08:07→22:29)
[2020-05-12] MEDS: Aspirin 81 MG Tab.EC PO SCH (10:22)
[2020-05-12] MEDS: Lisinopril 20 MG Tab PO SCH (10:22)
[2020-05-12] MEDS: Lactobacillus Rhamnosus GG (Probiotic) Cap PO SCH ×2 (10:22→20:05)
[2020-05-12] MEDS: metFORMIN 500 MG Tab PO SCH ×2 (10:22→17:04)
[2020-05-12] MEDS: Docusate Sodium 100 MG Cap PO SCH (10:22)
[2020-05-12] MEDS ORDERED: Sodium Phosphate,Monobasic/Sodium Phosphate,Dibasic Enema 133 ML Bottle RECTAL PRN (12:06)
--- NOTE | 2020-05-12 12:15 | PCM.PN ---
- General Info Date of Service: 05/12/20 Subjective Update: Mr. Cabral has remained stable since yesterday. Oral intake has been fairly good and his respiratory status has remained stable. Vital signs are within desired range and he has remained afebrile. Remains fairly weak and requires assistance of 2 for transfers and ambulation. Functional Status: Reports: Tolerating Diet, Urinating - Review of Systems General: Reports: Weakness, Fatigue. Denies: Fever, Chills Pulmonary: Reports: No Symptoms Cardiovascular: Reports: No Symptoms Gastrointestinal: Reports: No Symptoms - Patient Data Vitals - Most Recent: Last Vital Signs Temp 98.3 F 05/12/20 11:46 Pulse 84 05/12/20 11:46 Resp 20 05/12/20 11:46 BP 180/90 H 05/12/20 11:47 Pulse Ox 97 05/12/20 11:46 Weight - Most Recent: 227 lb 1.606 oz I&O - Last 24 Hours: Intake & Output 05/11/20 05/12/20 05/12/20 22:59 06:59 14:59 Intake Total 1180 240 Output Total 420 500 725 Balance 760 -500 -485 Lab Results Last 24 Hours: Laboratory Results - last 24 hr 05/11/20 05/11/20 05/11/20 Range/Units 11:50 16:58 21:00 WBC (4.5-11.0) K/uL RBC (4.30-5.90) M/uL Hgb (12.0-15.0) g/dL Hct (40.0-54.0) % MCV (80-98) fL MCH (27-31) pg MCHC (32-36) % Plt Count (150-400) K/uL Neut % (Auto) (36-66) % Lymph % (Auto) (24-44) % [facility] % (Auto) (2-6) % Eos % (Auto) (2-4) % Baso % (Auto) (0-1) % POC Glucose 130 H 102 147 H (74-106) MG/DL 05/12/20 05/12/20 05/12/20 Range/Units 04:00 07:30 11:30 WBC 11.2 H (4.5-11.0) K/uL RBC 3.99 L (4.30-5.90) M/uL Hgb 11.0 L (12.0-15.0) g/dL Hct 34.5 L (40.0-54.0) % MCV 87 (80-98) fL MCH 28 (27-31) pg MCHC 32 (32-36) % Plt Count 220 (150-400) K/uL Neut % (Auto) 56 (36-66) % Lymph % (Auto) 27 (24-44) % [facility] % (Auto) 11 H (2-6) % Eos % (Auto) 7 H (2-4) % Baso % (Auto) 0 (0-1) % POC Glucose 119 H 139 H (74-106) MG/DL Estiven Results Last 24 Hours: Microbiology 05/08/20 17:28 Aerobic Blood Culture - Preliminary Blood - Venous - Iv Start NO GROWTH AFTER 3 DAYS Anaerobic Blood Culture - Preliminary NO GROWTH AFTER 3 DAYS 05/08/20 17:39 Aerobic Blood Culture - Preliminary Blood - Arm, Right NO GROWTH AFTER 3 DAYS Anaerobic Blood Culture - Preliminary NO GROWTH AFTER 3 DAYS Med Orders - Current: Current Medications Acetaminophen (Tylenol) 650 mg PO Q4H PRN PRN Reason: Pain (Mild 1-3)/fever Last Admin: 05/11/20 20:25 Dose: 650 mg Documented by: Aspirin (Halfprin) 81 mg PO DAILY [facility] Last Admin: 05/12/20 10:22 Dose: 81 mg Documented by: Atorvastatin Calcium (Lipitor) 20 mg PO BEDTIME [facility] Last Admin: 05/11/20 21:13 Dose: 20 mg Documented by: Bisacodyl (Dulcolax) 10 mg RECTAL ONETIME ONE Stop: 05/12/20 12:07 Dextrose (Glutose 15) 15 gm PO ONETIME PRN PRN Reason: Hypoglycemia Dextrose/Water (Dextrose 50% In Water) 50 ml IV ONETIME PRN PRN Reason: Hypoglycemia Diphenhydramine HCl (Benadryl) 25 mg IVPUSH Q4H PRN PRN Reason: Allergies Last Admin: 05/09/20 06:25 Dose: 25 mg Documented by: Docusate Sodium (Colace) 100 mg PO DAILY [facility] Last Admin: 05/12/20 10:22 Dose: 100 mg Documented by: Enoxaparin Sodium (Lovenox) 40 mg SUBCUT DAILY@1400 [facility] Last Admin: 05/11/20 14:16 Dose: 40 mg Documented by: Insulin Human Lispro (Humalog) 0 unit SUBCUT QIDACANDBED [facility]; Protocol Last Admin: 05/12/20 08:07 Dose: Not Given Documented by: Lactobacillus Rhamnosus (Culturelle) 1 cap PO BID [facility] Last Admin: 05/12/20 10:22 Dose: 1 cap Documented by: Levofloxacin (Levaquin) 750 mg PO Q24H [facility] Lisinopril (Prinivil) 40 mg PO DAILY [facility] Last Admin: 05/12/20 10:22 Dose: 40 mg Documented by: Melatonin (Melatonin) 9 mg PO BEDTIME [facility] Last Admin: 05/11/20 21:15 Dose: 9 mg Documented by: Metformin HCl (Glucophage) 1,000 mg PO BIDMEALS [facility] Last Admin: 05/12/20 10:22 Dose: 1,000 mg Documented by: (Clozapine [ Clozapine] 100mg * Pom* 0 mg PO BEDTIME [facility] Last Admin: 05/11/20 21:12 Dose: 400 mg Documented by: ([place] Carbonate [ Eskalith Cr] 450 Mg) *Pom* 0 mg PO BEDTIME [facility] Last Admin: 05/11/20 21:14 Dose: 450 mg Documented by: [place] Carb 300mg * (Pom*) 1 each PO BEDTIME [facility] Last Admin: 05/11/20 21:13 Dose: 1 each Documented by: Ondansetron HCl (Zofran) 4 mg IV Q4H PRN PRN Reason: Nausea/Vomiting Last Admin: 05/08/20 17:17 Dose: 4 mg Documented by: Pantoprazole Sodium (Protonix) 40 mg PO BEDTIME [facility] Last Admin: 05/11/20 21:14 Dose: 40 mg Documented by: Polyethylene Glycol (Miralax) 17 gm PO DAILY PRN PRN Reason: Constipation Last Admin: 05/10/20 09:25 Dose: 17 gm Documented by: Polyethylene Glycol (Miralax) 51 gm PO ONETIME ONE Stop: 05/12/20 12:07 Sodium Biphosphate/Sodium Phosphate (Fleet Enema) 133 ml RECTAL ONETIME PRN PRN Reason: Constipation Sodium Chloride (Saline Flush) 10 ml FLUSH ASDIRECTED PRN PRN Reason: Keep Vein Open Discontinued Medications Ceftriaxone Sodium 1 gm/ (Sodium Chloride) 50 mls @ 100 mls/hr IV ONETIME ONE Stop: 05/08/20 13:47 Last Admin: 05/08/20 13:45 Dose: 100 mls/hr Documented by: Sodium Chloride (Normal Saline) 1,000 mls @ 125 mls/hr IV ASDIRECTED [facility] Last Admin: 05/09/20 08:57 Dose: 125 mls/hr Documented by: Ceftriaxone Sodium 1 gm/ (Sodium Chloride) 50 mls @ 100 mls/hr IV Q24H [facility] Last Admin: 05/11/20 12:10 Dose: 100 mls/hr Documented by: Doxycycline Hyclate 100 mg/ (Sodium Chloride) 100 mls @ 100 mls/hr IV Q12H [facility] Last Admin: 05/09/20 05:52 Dose: 100 mls/hr Documented by: Levofloxacin/Dextrose 750 mg/ (Premix) 150 mls @ 100 mls/hr IV Q24H [facility] Last Admin: 05/11/20 12:51 Dose: 100 mls/hr Documented by: Methylprednisolone Sodium Succinate (Solu-Medrol) 40 mg IVPUSH Q6H [facility] Methylprednisolone Sodium Succinate (Solu-Medrol) 40 mg IVPUSH ONETIME ONE Stop: 05/09/20 06:37 Last Admin: 05/09/20 06:30 Dose: 40 mg Documented by: - Exam Quality Assessment: DVT Prophylaxis General: Alert, Oriented, Cooperative, Mild Distress Lungs: Clear to Auscultation, Normal Respiratory Effort, Decreased Breath Sounds Cardiovascular: Regular Rate, Regular Rhythm, No Murmurs GI/Abdominal Exam: Soft, Non-Tender, No Organomegaly, No Distention Extremities: Non-Tender, No Pedal Edema Sepsis Event Note - Evaluation Sepsis Screening Result: No Definite Risk - Focused Exam Vital Signs: Vital Signs Temp Temp Pulse Resp BP BP BP 05/12/20 11:47 180/90 H 05/12/20 11:46 98.3 F 84 20 141/112 H 05/12/20 10:22 161/76 H 05/12/20 07:48 98.3 F 60 16 161/76 H 05/12/20 04:32 98.3 F 65 20 155/63 H 05/12/20 01:07 98.3 F 60 20 146/55 H Pulse Ox 05/12/20 11:47 05/12/20 11:46 97 05/12/20 10:22 05/12/20 07:48 93 L 05/12/20 04:32 95 05/12/20 01:07 95 - Problem List Review Problem List Initiated/Reviewed/Updated: Yes - My Orders Last 24 Hours: My Active Orders 05/12/20 12:06 bisacodyL [Dulcolax] 10 mg RECTAL ONETIME ONE polyethylene glycoL 3350 [MiraLAX] 51 gm PO ONETIME ONE 05/12/20 12:06 Na Phos,M-B/Na Phos,DI-B [Fleet Enema] 133 ml RECTAL ONETIME PRN 05/12/20 12:15 levoFLOXacin [Levaquin] 750 mg PO Q24H 05/12/20 16:30 GLUCOSE POC LAB TO COLLECT JPM [POC] QIDACANDBED 05/12/20 21:00 GLUCOSE POC LAB TO COLLECT JPM [POC] QIDACANDBED 05/13/20 07:30 GLUCOSE POC LAB TO COLLECT JPM [POC] QIDACANDBED 05/13/20 11:30 GLUCOSE POC LAB TO COLLECT JPM [POC] QIDACANDBED - Plan Plan:: ASSESSMENT AND PLAN ACUTE CYSTITIS-progressive weakness prior to admission. Urine culture has grown pansensitive E. coli -Continue levofloxacin -Physical therapy RIGHT LUNG PNEUMONIA -Follow-up blood cultures -Saline lock IV -Oral levofloxacin TYPE 2 DIABETES MELLITUS-mild elevation of sugars so far. 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 Quite weak. -Continue outpatient medications -Parmelee level in a.m. DEMENTIA -Melatonin at bedtime MAINTENANCE ISSUES -DVT prophylaxis; Lovenox 40 mg subcu daily -GI prophylaxis; continue outpatient PPI therapy -[facility] catheter; not indicated -Nutrition; consistent carb diet DISPOSITION-anticipate discharge to home after the hospital stay.
[2020-05-12] MEDS ORDERED: Polyethylene Glycol 3350 Powder 17 GM Packet PO ONE (12:30)
[2020-05-12] MEDS ORDERED: Bisacodyl 10 MG Supp RECTAL ONE ×2 (12:30→22:00)
[2020-05-12] MEDS: Levofloxacin 250 MG Tab PO SCH (13:26)
[2020-05-12] MEDS: Enoxaparin 40 MG/0.4 ML Syringe SUBCUT SCH (15:36)
[2020-05-12] MEDS: CLOZAPINE 100 MG PO SCH (20:05)
[2020-05-12] MEDS: atorvaSTATin 20 MG Tab PO SCH (20:05)
[2020-05-12] MEDS: Acetaminophen 325 MG Tab PO PRN (20:09)
[2020-05-12] MEDS: Pantoprazole 40 MG Tab.CR PO SCH (20:10)
[2020-05-12] MEDS: Melatonin 3 MG Tab PO SCH (20:10)
[2020-05-12] MEDS: LITHIUM CARB PO SCH (20:10)
[2020-05-13] MEDS: Insulin Lispro 100 Unit/ML 3 ML KwikPen SUBCUT SCH ×2 (08:28→13:23)
[2020-05-13] MEDS: Levofloxacin 250 MG Tab PO SCH (08:32)
[2020-05-13] MEDS: metFORMIN 500 MG Tab PO SCH (08:33)
[2020-05-13] MEDS: Docusate Sodium 100 MG Cap PO SCH (08:33)
[2020-05-13] MEDS: Aspirin 81 MG Tab.EC PO SCH (08:34)
[2020-05-13] MEDS: Lactobacillus Rhamnosus GG (Probiotic) Cap PO SCH (08:34)
[2020-05-13] MEDS: Lisinopril 20 MG Tab PO SCH (08:34)
--- NOTE | 2020-05-13 09:58 | CR ---
CHEST: 2 view CLINICAL HISTORY:Leukocytosis, weakness COMPARISON:None FINDINGS: Heart is enlarged. Pulmonary vascular is normal. No infiltrate, effusion or pneumothorax is seen. Impression: Mild cardiomegaly No acute cardiopulmonary process.
--- NOTE | 2020-05-13 11:02 | PCM.DCSUM1 ---
Discharge Summary - Hospital Course Brief History: Mr. Cabral is a 64-year-old gentleman who was admitted through the emergency department with weakness and lethargy secondary to underlying urinary tract infection. - Discharge Data Discharge Date: 05/13/20 Discharge Disposition: DC/Tfer to [facility] Condition: Fair - Referral to Home Health Primary Care Physician: Casa Carreon NP - Discharge Diagnosis/Problem(s) (1) UTI (urinary tract infection) SNOMED Code(s): 87360863 ICD Code: N39.0 - URINARY TRACT INFECTION, SITE NOT SPECIFIED Status: Acute Current Visit: Yes Qualifiers: Urinary tract infection type: acute cystitis Hematuria presence: without hematuria Qualified Code(s): N30.00 - Acute cystitis without hematuria (2) Mild cognitive disorder SNOMED Code(s): 991071268 ICD Code: F09 - UNSP MENTAL DISORDER DUE TO KNOWN PHYSIOLOGICAL CONDITION Status: Chronic Current Visit: Yes (3) Schizophrenia SNOMED Code(s): 55823856 ICD Code: F20.9 - SCHIZOPHRENIA, UNSPECIFIED Status: Chronic Current Visit: Yes (4) Type 2 diabetes mellitus SNOMED Code(s): 18043319 ICD Code: E11.9 - TYPE 2 DIABETES MELLITUS WITHOUT COMPLICATIONS Status: Chronic Current Visit: No - Patient Summary/Data Consults: Consultations 05/09/20 10:08 PT Evaluation and Treatment [CONS] Routine Please Evaluate and Treat. PT Reason for Consult: Strengthening This query below is only for informational purposes and is not editable. Admission Diagnosis/Problem: Urinary tract infection 05/13/20 07:46 OT Evaluation and Treatment [CONS] Routine Please Evaluate and Treat. OT Reason for Consult: weakness Pending Discharge: Yes This query below is only for informational purposes and is not editable. Admission Diagnosis/Problem: Urinary tract infection Hospital Course: Mr. Cabral is a 64-year-old gentleman who was admitted through the emergency department with increased weakness and fever, secondary to urinary tract infection. Staff at his assisted living facility had noted marked weakness this morning and he was brought into the emergency department for further evaluation. He has a history of schizophrenia as well as developing dementia with confusion and is unable to provide a meaningful history concerning recent symptoms or review of systems. White blood cell count was noted to be elevated. Urine did show elevation in white blood cells . After admission he did develop significant temperature elevation and blood cultures have been obtained in addition to the previously ordered urine culture. Chest x-ray was initially felt to be consistent with pneumonia, no obvious infiltrates were noted on radiologic review. The fluids were given initially because of probable dehydration with poor oral intake. He did develop significant temperature elevation after admission and blood cultures were obtained which remained negative throughout his hospital stay. He did receive appropriate antibiotic during hospitalization, urine culture did grow out pansensitive E. coli. He gradually improved during hospital stay and became more alert and interactive. He will be discharged back to assisted living facility with 3 additional days of oral antibiotic therapy with cephalexin. Because of his weakness home care services will be ordered including home physical therapy and Occupational Therapy. Follow-up appointment will be scheduled with his primary care provider within 1 week. Activity will be as tolerated and he will resume his usual diet. - Patient Instructions Diet: Usual Diet as Tolerated Activity: As Tolerated Other/Special Instructions: Please arrange for home care services after discharge with home physical therapy and Occupational Therapy. Please schedule follow-up appointment with primary care provider within 1 week. - Discharge Plan *PRESCRIPTION DRUG MONITORING PROGRAM REVIEWED*: Not Applicable *COPY OF PRESCRIPTION DRUG MONITORING REPORT IN PATIENT LULÚ: Not Applicable Prescriptions/Med Rec: cephALEXin [Cephalexin] 500 mg PO QID #12 capsule Lactobacillus Rhamnosus GG [Culturelle] 1 cap PO BID #60 cap Home Medications: Home Meds Aspirin [Halfprin] 81 mg PO DAILY 03/05/19 [History] Cholecalciferol (Vitamin D3) [Vitamin D3] 2,000 unit PO DAILY 03/05/19 [History] Docusate Sodium [Colace] 100 mg PO DAILY 03/05/19 [History] [place] Carbonate [Eskalith CR] 450 mg PO BEDTIME 03/05/19 [History] Pantoprazole [ProTONIX] 40 mg PO BEDTIME 03/05/19 [History] atorvaSTATin [Lipitor] 20 mg PO BEDTIME 03/05/19 [History] cloZAPine 400 mg PO BEDTIME 03/05/19 [History] lisinopriL [Lisinopril] 40 mg PO DAILY 03/05/19 [History] metFORMIN HCl [Metformin HCl] 1,000 mg PO BID 03/05/19 [History] Ascorbic Acid [Vitamin C] 500 mg PO BID 05/08/20 [History] Blood-Glucose Control, Low [True Metrix] 1 each PO DAILY 05/08/20 [History] [place] Carbonate 300 mg PO BEDTIME 05/08/20 [History] Multivitamins/Min/Ca/FA/Iron [Thera-M] 1 tab PO DAILY 05/08/20 [History] Zinc 50 mg PO DAILY 05/08/20 [History] diazePAM [Valium] 10 mg PO ASDIRECTED PRN 05/08/20 [History] Lactobacillus Rhamnosus GG [Culturelle] 1 cap PO BID #60 cap 05/13/20 [Rx] cephALEXin [Cephalexin] 500 mg PO QID #12 capsule 05/13/20 [Rx] Referrals: PCP,None [Ordering Only Provider] - - Discharge Summary/Plan Comment DC Time >30 min.: No - Patient Data Vitals - Most Recent: Last Vital Signs Temp 97.9 F 05/13/20 07:00 Pulse 61 05/13/20 07:00 Resp 18 05/13/20 07:00 BP 139/59 L 05/13/20 08:34 Pulse Ox 94 L 05/13/20 07:00 Weight - Most Recent: 227 lb 1.606 oz I&O - Last 24 hours: Intake & Output 05/12/20 05/13/20 05/13/20 22:59 06:59 14:59 Intake Total 960 475 Output Total 380 825 400 Balance 580 -825 75 Lab Results - Last 24 hrs: Laboratory Results - last 24 hr 05/12/20 05/12/20 05/12/20 Range/Units 11:30 16:50 21:16 POC Glucose 139 H 163 H 124 H (74-106) MG/DL 05/13/20 Range/Units 07:30 POC Glucose 133 H (74-106) MG/DL MONIKA Results - Last 24 hrs: Microbiology 05/08/20 17:28 Aerobic Blood Culture - Preliminary Blood - Venous - Iv Start NO GROWTH AFTER 4 DAYS Anaerobic Blood Culture - Preliminary NO GROWTH AFTER 4 DAYS 05/08/20 17:39 Aerobic Blood Culture - Preliminary Blood - Arm, Right NO GROWTH AFTER 4 DAYS Anaerobic Blood Culture - Preliminary NO GROWTH AFTER 4 DAYS Med Orders - Current: Current Medications Acetaminophen (Tylenol) 650 mg PO Q4H PRN PRN Reason: Pain (Mild 1-3)/fever Last Admin: 05/12/20 20:09 Dose: 650 mg Documented by: Aspirin (Halfprin) 81 mg PO DAILY [facility] Last Admin: 05/13/20 08:34 Dose: 81 mg Documented by: Atorvastatin Calcium (Lipitor) 20 mg PO BEDTIME [facility] Last Admin: 05/12/20 20:05 Dose: 20 mg Documented by: Dextrose (Glutose 15) 15 gm PO ONETIME PRN PRN Reason: Hypoglycemia Dextrose/Water (Dextrose 50% In Water) 50 ml IV ONETIME PRN PRN Reason: Hypoglycemia Diphenhydramine HCl (Benadryl) 25 mg IVPUSH Q4H PRN PRN Reason: Allergies Last Admin: 05/09/20 06:25 Dose: 25 mg Documented by: Docusate Sodium (Colace) 100 mg PO DAILY [facility] Last Admin: 05/13/20 08:33 Dose: 100 mg Documented by: Enoxaparin Sodium (Lovenox) 40 mg SUBCUT DAILY@1400 [facility] Last Admin: 05/12/20 15:36 Dose: 40 mg Documented by: Insulin Human Lispro (Humalog) 0 unit SUBCUT QIDACANDBED [facility]; Protocol Last Admin: 05/13/20 08:28 Dose: Not Given Documented by: Lactobacillus Rhamnosus (Culturelle) 1 cap PO BID [facility] Last Admin: 05/13/20 08:34 Dose: 1 cap Documented by: Levofloxacin (Levaquin) 750 mg PO ACBREAKFAST [facility] Last Admin: 05/13/20 08:32 Dose: 750 mg Documented by: Lisinopril (Prinivil) 40 mg PO DAILY [facility] Last Admin: 05/13/20 08:34 Dose: 40 mg Documented by: Melatonin (Melatonin) 9 mg PO BEDTIME [facility] Last Admin: 05/12/20 20:10 Dose: 9 mg Documented by: Metformin HCl (Glucophage) 1,000 mg PO BIDMEALS [facility] Last Admin: 05/13/20 08:33 Dose: 1,000 mg Documented by: (Clozapine [ Clozapine] 100mg * Pom* 0 mg PO BEDTIME [facility] Last Admin: 05/12/20 20:05 Dose: 400 mg Documented by: ([place] Carbonate [ Eskal[place] Cr] 450 Mg) *Pom* 0 mg PO BEDTIME [facility] Last Admin: 05/12/20 20:05 Dose: 450 mg Documented by: [place] Carb 300mg * (Pom*) 1 each PO BEDTIME [facility] Last Admin: 05/12/20 20:10 Dose: 1 each Documented by: Ondansetron HCl (Zofran) 4 mg IV Q4H PRN PRN Reason: Nausea/Vomiting Last Admin: 05/08/20 17:17 Dose: 4 mg Documented by: Pantoprazole Sodium (Protonix) 40 mg PO BEDTIME [facility] Last Admin: 05/12/20 20:10 Dose: 40 mg Documented by: Polyethylene Glycol (Miralax) 17 gm PO DAILY PRN PRN Reason: Constipation Last Admin: 05/10/20 09:25 Dose: 17 gm Documented by: Sodium Biphosphate/Sodium Phosphate (Fleet Enema) 133 ml RECTAL ONETIME PRN PRN Reason: Constipation Sodium Chloride (Saline Flush) 10 ml FLUSH ASDIRECTED PRN PRN Reason: Keep Vein Open Discontinued Medications Bisacodyl (Dulcolax) 10 mg RECTAL ONETIME ONE Stop: 05/12/20 12:31 Last Admin: 05/12/20 17:50 Dose: Not Given Documented by: Bisacodyl (Dulcolax) 10 mg RECTAL ONETIME ONE Stop: 05/12/20 22:01 Last Admin: 05/12/20 23:02 Dose: Not Given Documented by: Ceftriaxone Sodium 1 gm/ (Sodium Chloride) 50 mls @ 100 mls/hr IV ONETIME ONE Stop: 05/08/20 13:47 Last Admin: 05/08/20 13:45 Dose: 100 mls/hr Documented by: Sodium Chloride (Normal Saline) 1,000 mls @ 125 mls/hr IV ASDIRECTED [facility] Last Admin: 05/09/20 08:57 Dose: 125 mls/hr Documented by: Ceftriaxone Sodium 1 gm/ (Sodium Chloride) 50 mls @ 100 mls/hr IV Q24H [facility] Last Admin: 05/11/20 12:10 Dose: 100 mls/hr Documented by: Doxycycline Hyclate 100 mg/ (Sodium Chloride) 100 mls @ 100 mls/hr IV Q12H [facility] Last Admin: 05/09/20 05:52 Dose: 100 mls/hr Documented by: Levofloxacin/Dextrose 750 mg/ (Premix) 150 mls @ 100 mls/hr IV Q24H [facility] Last Admin: 05/11/20 12:51 Dose: 100 mls/hr Documented by: Methylprednisolone Sodium Succinate (Solu-Medrol) 40 mg IVPUSH Q6H [facility] Methylprednisolone Sodium Succinate (Solu-Medrol) 40 mg IVPUSH ONETIME ONE Stop: 05/09/20 06:37 Last Admin: 05/09/20 06:30 Dose: 40 mg Documented by: Polyethylene Glycol (Miralax) 51 gm PO ONETIME ONE Stop: 05/12/20 12:31 Last Admin: 05/12/20 13:26 Dose: 51 gm Documented by: - Exam General: Reports: Alert, Oriented, Cooperative, No Acute Distress Lungs: Reports: Clear to Auscultation, Normal Respiratory Effort Cardiovascular: Reports: Regular Rate, Regular Rhythm, No Murmurs GI/Abdominal Exam: Soft, Non-Tender, No Organomegaly, No Distention
[2020-05-13] MEDS: Enoxaparin 40 MG/0.4 ML Syringe SUBCUT SCH (15:12)
== END 2020-05-13 15:15 | DRG 690 ==
LOC: JP.ED 10:50 → JP.MS 13:24 → OBSVTOIN 14:27 → JP.MS 15:59
PROVIDERS: ADMIT Hospitalist; ATTEND Hospitalist
DX: N30.00 Acute cystitis without hematuria (principal); F09 Unspecified mental disorder due to known physiological condition; F20.9 Schizophrenia, unspecified; E11.9 Type 2 diabetes mellitus without complications; B96.20 Unspecified Escherichia coli [E. coli] as the cause of diseases classified elsewhere; E86.0 Dehydration; Z79.82 Long term (current) use of aspirin; Z79.899 Other long term (current) drug therapy; Z79.84 Long term (current) use of oral hypoglycemic drugs; Z88.1 Allergy status to other antibiotic agents; Z88.8 Allergy status to other drugs, medicaments and biological substances; H54.7 Unspecified visual loss; I10 Essential (primary) hypertension; K21.9 Gastro-esophageal reflux disease without esophagitis; M10.9 Gout, unspecified; F31.9 Bipolar disorder, unspecified; E66.9 Obesity, unspecified; W19.XXXA Unspecified fall, initial encounter; Z68.30 Body mass index [BMI] 30.0-30.9, adult
CPT/HCPCS: 36415; 71046; 71046-26; 80048; 80053; 80178; 81001; 82962; 84484; 85025; 85027; 87040; 87086; 87088; 87186; 96365; 97110-GP; 97162-GP; 97165-GO; 97535-GO; 99285-25; A9270-GY; J0696; J1200; J1650; J1815; J1956; J2405; J2920; J3490; J7030; J7050

== ENCOUNTER 2020-11-01 08:33 | Emergency (ER) | payer MEDICARE, OTHER ==
[2020-11-01] MEDS ORDERED: Erythromycin Base 0.5% Ophth Oint 3.5 GM Tube EYEBOTH ONE (08:54)
--- NOTE | 2020-11-01 09:00 | EDM.PDOC ---
ED HPI GENERAL MEDICAL PROBLEM - General Chief Complaint: Head Injury Stated Complaint: fall out of bed Time Seen by Provider: 11/01/20 08:45 Source of Information: Reports: Patient, EMS, Old Records History Limitations: Reports: Other (patient is not a reliable historian) - History of Present Illness INITIAL COMMENTS - FREE TEXT/NARRATIVE: 65 yo male [facility] resident presents via EMS after a fall out of bed. It is not cleared how this happened as it was not witnessed. Patient gives various versions of what happened. Normally he walks without assistance. Is not generally very active. Was hospitalized last April after a fall caused by a UTI with resulting weakness. Has some mild cognitive impairment and schizophrenia. Onset: Today Onset Date: 11/01/20 Duration: Hour(s):, Constant Location: Reports: Generalized Quality: Reports: Other (pain not reported) Severity: Mild Improves with: Reports: None Worsens with: Reports: Other (unsure) Context: Reports: Other (See HPI) Associated Symptoms: Reports: Weakness (generalized). Denies: Chest Pain, Cough, Fever/Chills, Headaches, Nausea/Vomiting, Rash, Seizure, Shortness of Breath, Syncope Treatments [employer]: Reports: Other (see below) (none) Eye Pain Score (Numeric/FACES): 2 - Related Data Allergies Allergy/AdvReac Type Severity Reaction Status Date / Time doxycycline Allergy Severe Difficulty Verified 11/01/20 09:05 Breathing indomethacin Allergy Cannot Verified 11/01/20 09:05 Remember perphenazine Allergy Cannot Verified 11/01/20 09:05 Remember Home Meds: Home Meds Aspirin [Halfprin] 81 mg PO DAILY 03/05/19 [History] Cholecalciferol (Vitamin D3) [Vitamin D3] 2,000 unit PO DAILY 03/05/19 [History] Docusate Sodium [Colace] 100 mg PO DAILY 03/05/19 [History] [place] Carbonate [Eskalith CR] 450 mg PO BEDTIME 03/05/19 [History] Pantoprazole [ProTONIX] 40 mg PO BEDTIME 03/05/19 [History] atorvaSTATin [Lipitor] 20 mg PO BEDTIME 03/05/19 [History] cloZAPine 400 mg PO BEDTIME 03/05/19 [History] lisinopriL [Lisinopril] 40 mg PO DAILY 03/05/19 [History] metFORMIN HCl [Metformin HCl] 1,000 mg PO BID 03/05/19 [History] Blood-Glucose Control, Low [True Metrix] 1 each PO DAILY 05/08/20 [History] [place] Carbonate 300 mg PO BEDTIME 05/08/20 [History] Multivitamins/Min/Ca/FA/Iron [Thera-M] 1 tab PO DAILY 05/08/20 [History] Lactobacillus Rhamnosus GG [Culturelle] 1 cap PO BID #60 cap 05/13/20 [Rx] Past Medical History HEENT History: Reports: Impaired Vision Cardiovascular History: Reports: Hypertension Gastrointestinal History: Reports: GERD Musculoskeletal History: Reports: Gout Psychiatric History: Reports: Addiction, Bipolar, Schizophrenia, Suicide Attempt Endocrine/Metabolic History: Reports: Diabetes, Type II, Obesity/BMI 30+ - Infectious Disease History Infectious Disease History: Reports: Chicken Pox, Mumps, Novel Coronavirus, Other (See Below) - Past Surgical History Head Surgeries/Procedures: Reports: None HEENT Surgical History: Reports: None Cardiovascular Surgical History: Reports: None GI Surgical History: Reports: None Endocrine Surgical History: Reports: None Musculoskeletal Surgical History: Reports: None Dermatological Surgical History: Reports: None Social & Family History - Family History Family Medical History: Unobtainable - Caffeine Use Caffeine Use: Reports: Other Other Caffeine Use: unkown ED ROS GENERAL - Review of Systems Review Of Systems: See Below Constitutional: Reports: No Symptoms HEENT: Reports: Other (can't see out of R eye) Respiratory: Reports: No Symptoms Cardiovascular: Reports: No Symptoms GI/Abdominal: Reports: No Symptoms : Reports: No Symptoms Musculoskeletal: Reports: No Symptoms Skin: Reports: No Symptoms Neurological: Reports: No Symptoms Psychiatric: Reports: No Symptoms ED EXAM, HEAD INJURY - Physical Exam Exam: See Below Exam Limited By: No Limitations General Appearance: Alert, WD/WN, No Apparent Distress Head: Normocephalic, Facial Swelling (R eye lids are swollen shut), Other (R eye swollen shut, conjunctival injection present with some yellowish drainage. Can see if lid for R eye is held open. ). No: Facial Ecchymosis Eyes: Right Eye: Conjunctival Injection, Bilateral Eye: PERRL Ears: Normal External Exam, Normal Canal, Hearing Grossly Normal, Normal TMs Nose: Normal Inspection, No Blood Throat/Mouth: Normal Inspection, Normal Lips, Normal Oropharynx, Normal Voice, No Airway Compromise Neck: Non-Tender, Full Range of Motion, Normal Alignment, Normal Inspection Respiratory: No Respiratory Distress, Lungs Clear, Normal Breath Sounds, No Accessory Muscle Use Cardiovascular: Regular Rate, Rhythm, No Edema GI/Abdominal Exam: Normal Bowel Sounds, Soft, Non-Tender, No Distention (Male) Exam: Other (formed stool, brown color in rectum. No impactions. No masses. ) Back Exam: Normal Inspection. No: CVA Tenderness (R), CVA Tenderness (L) Extremities: Normal Inspection, Normal Range of Motion, Non-Tender, No Pedal Edema Neurologic: No Motor/Sensory Deficits, Alert, Normal Mood/Affect, Oriented x 3, Other (Has mild generalized weakness) Skin: Normal Color, Warm/Dry - Enzo Coma Score Best Eye Response ([place]): (4) Open Spontaneously Best Verbal Response ([place]): (5) Oriented Best Motor Response ([place]): (6) Obeys Commands [place] Total: 15 Course - Vital Signs Text/Narrative:: Bladder scan post void 57 ml Last Recorded V/S: Last Vital Signs Temp 36.8 C 11/01/20 08:51 Pulse 69 11/01/20 10:12 Resp 20 11/01/20 10:12 BP 121/55 L 11/01/20 10:12 Pulse Ox 96 11/01/20 10:12 - Orders/Labs/Meds Orders: Active Orders 24 hr Category Date Time Status Bladder Scan [RC] ASDIRECTED Care 11/01/20 11:38 Active CULTURE URINE [RM] Stat Lab 11/01/20 11:42 Received Labs: Laboratory Tests 11/01/20 11/01/20 11/01/20 Range/Units 09:07 09:07 09:17 WBC 14.9 H (4.5-11.0) K/uL RBC 3.70 L (4.30-5.90) M/uL Hgb 10.3 L (12.0-15.0) g/dL Hct 33.2 L (40.0-54.0) % MCV 90 (80-98) fL MCH 28 (27-31) pg MCHC 31 L (32-36) % Plt Count 199 (150-400) K/uL Sodium 140 (140-148) mmol/L Potassium 4.6 (3.6-5.2) mmol/L Chloride 104 (100-108) mmol/L Carbon Dioxide 23 (21-32) mmol/L Anion Gap 13.5 (5.0-14.0) mmol/L BUN 28 H (7-18) mg/dL Creatinine 1.5 H (0.8-1.3) mg/dL Est Cr Clr Drug Dosing 54.61 mL/min Estimated GFR (MDRD) 47 L (>60) Glucose 180 H (74-106) mg/dL Calcium 8.9 (8.5-10.1) mg/dL Troponin I < 0.017 (0.000-0.056) ng/mL C-Reactive Protein (0.0-0.3) mg/dL Urine Color Yellow (YELLOW) Urine Appearance Slightly cloudy A (CLEAR) Urine pH 5.5 (5.0-8.0) Ur Specific [place] 1.020 (1.008-1.030) Urine Protein Negative (NEGATIVE) mg/dL Urine Glucose (UA) Negative (NEGATIVE) mg/dL Urine Ketones Negative (NEGATIVE) mg/dL Urine Occult Blood Small H (NEGATIVE) Urine Nitrite Negative (NEGATIVE) Urine Bilirubin Negative (NEGATIVE) Urine Urobilinogen 0.2 (0.2-1.0) EU/dL Ur Leukocyte Esterase Trace H (NEGATIVE) Urine RBC 5-10 H (0-5) Urine WBC 5-10 H (0-5) Ur Epithelial Cells Not seen Amorphous Sediment Not seen Urine Bacteria Many Urine Mucus Not seen 11/01/20 Range/Units 10:39 WBC (4.5-11.0) K/uL RBC (4.30-5.90) M/uL Hgb (12.0-15.0) g/dL Hct (40.0-54.0) % MCV (80-98) fL MCH (27-31) pg MCHC (32-36) % Plt Count (150-400) K/uL Sodium (140-148) mmol/L Potassium (3.6-5.2) mmol/L Chloride (100-108) mmol/L Carbon Dioxide (21-32) mmol/L Anion Gap (5.0-14.0) mmol/L BUN (7-18) mg/dL Creatinine (0.8-1.3) mg/dL Est Cr Clr Drug Dosing mL/min Estimated GFR (MDRD) (>60) Glucose (74-106) mg/dL Calcium (8.5-10.1) mg/dL Troponin I (0.000-0.056) ng/mL C-Reactive Protein 9.03 H (0.0-0.3) mg/dL Urine Color (YELLOW) Urine Appearance (CLEAR) Urine pH (5.0-8.0) Ur Specific [place] (1.008-1.030) Urine Protein (NEGATIVE) mg/dL Urine Glucose (UA) (NEGATIVE) mg/dL Urine Ketones (NEGATIVE) mg/dL Urine Occult Blood (NEGATIVE) Urine Nitrite (NEGATIVE) Urine Bilirubin (NEGATIVE) Urine Urobilinogen (0.2-1.0) EU/dL Ur Leukocyte Esterase (NEGATIVE) Urine RBC (0-5) Urine WBC (0-5) Ur Epithelial Cells Amorphous Sediment Urine Bacteria Urine Mucus Meds: Medications Discontinued Medications Generic Name Dose Route Start Last Admin Trade Name Freq PRN Reason Stop Dose Admin Acetaminophen 1,000 mg 11/01/20 13:47 Acetaminophen 500 Mg Tab PO 11/01/20 13:48 ONETIME ONE Erythromycin 1 gm 11/01/20 08:54 11/01/20 09:22 Erythromycin Base 0.5% Ophth Oint 3.5 Gm Tube EYEBOTH 11/01/20 08:55 1 dose ONETIME ONE Administration Lactated Ringer's 1,000 mls @ 1,000 mls/hr 11/01/20 09:59 11/01/20 10:13 Ringers, Lactated IV 11/01/20 10:58 1,000 mls/hr BOLUS ONE Administration - Radiology Interpretation Free Text/Narrative:: CXR-neg R shoulder X-ray-neg Head CT scan-no acute changes - Re-Assessments/Exams Free Text/Narrative Re-Assessment/Exam: 11/01/20 11:36 still wobbly on his feet after a liter of IV fluids. Not safe to send back. Departure - Departure Time of Disposition: 14:10 Disposition: Home, Self-Care 01 Condition: Fair Clinical Impression: Leg weakness, bilateral Right shoulder pain Qualifiers: Chronicity: acute Qualified Code(s): M25.511 - Pain in right shoulder Conjunctivitis of right eye Qualifiers: Conjunctivitis type: acute Acute conjunctivitis type: bacterial Qualified Code(s): H10.31 - Unspecified acute conjunctivitis, right eye - Discharge Information *PRESCRIPTION DRUG MONITORING PROGRAM REVIEWED*: Not Applicable *COPY OF PRESCRIPTION DRUG MONITORING REPORT IN PATIENT LULÚ: Not Applicable Instructions: Shoulder Pain, [id number] Referrals: PCP,None [Primary Care Provider] - Forms: ED Department Discharge Additional Instructions: Give 3/4 inch of erythromycin ointment every 8 hrs for a week to the right eye. Give acetaminophen 1000 mg every 6 hrs for pain relief. PT for strengthening. Is not cleared for walking independently until cleared by PT. F/U with primary care provider in the next 3-4 days. Return as needed. Sepsis Event Note (ED) - Evaluation Sepsis Screening Result: No Definite Risk - Focused Exam Vital Signs: Vital Signs Temp Pulse Resp BP Pulse Ox 11/01/20 10:12 69 20 121/55 L 96 11/01/20 08:51 36.8 C 73 16 136/52 L 96 11/01/20 08:38 36.8 C 73 16 136/52 L 96 - My Orders Last 24 Hours: My Active Orders 11/01/20 11:38 Bladder Scan [RC] ASDIRECTED 11/01/20 11:42 CULTURE URINE [RM] Stat - Assessment/Plan Last 24 Hours: My Active Orders 11/01/20 11:38 Bladder Scan [RC] ASDIRECTED 11/01/20 11:42 CULTURE URINE [RM] Stat
[2020-11-01] MEDS ORDERED: Lactated Ringers 1,000 ML IV ONE (09:59)
--- NOTE | 2020-11-01 13:37 | CR ---
CHEST: Portable 11/02/2019 05/27/1949 CLINICAL HISTORY:Leukocytosis, chronic renal failure, MS COMPARISON:08/08/2020 FINDINGS: The heart size, pulmonary vascularity and hilar structures are normal. No infiltrate effusion or pneumothorax is seen. IMPRESSION: No acute cardiopulmonary process.
--- NOTE | 2020-11-01 13:40 | CT ---
Head wo Cont CLINICAL HISTORY: Inability to walk COMPARISON: None TECHNIQUE: Transverse scans were obtained from the base of the skull through the vertex without IV contrast on a multislice, multidetector CT scanner. Auto dosage reduction and iterative reconstruction techniques employed. FINDINGS: No focal abnormal parenchymal density is identified. There is no mass effect, hemorrhage, or extraaxial collection. There are some vague periventricular and subcortical lucency The basal cisterns and sulci over the convexities are normal. The ventricles are normal for age. IMPRESSION: No acute intracranial findings Periventricular and subcortical lucency may represent some chronic ischemic microvascular changes
--- NOTE | 2020-11-01 13:42 | CR ---
Shoulder Comp Rt CLINICAL HISTORY: Pain FINDINGS: There is no acute fracture or dislocation in the right shoulder. There is spurring at the AC joint. There is some mild periarticular spurring at the glenohumeral joint. Impression: Osteoarthritic changes in the AC and glenohumeral joint
[2020-11-01] MEDS ORDERED: Acetaminophen 500 MG Tab PO ONE (13:47)
== END 2020-11-01 16:02 | disposition home or self-care (01) ==
LOC: JP.ED 08:33
DX: R53.1 Weakness (principal); M25.511 Pain in right shoulder; H10.31 Unspecified acute conjunctivitis, right eye; I10 Essential (primary) hypertension; E11.9 Type 2 diabetes mellitus without complications; E66.9 Obesity, unspecified; Z68.30 Body mass index [BMI] 30.0-30.9, adult; Z88.1 Allergy status to other antibiotic agents; Z88.8 Allergy status to other drugs, medicaments and biological substances
CPT/HCPCS: 36415; 51798; 70450; 71045; 73030; 80048; 81001; 82272; 84484; 85027; 86140; 87086; 87088; 87186; 99283; 99284; A9270; J7120

== ENCOUNTER 2020-11-26 20:44 | Emergency (ER) | payer MEDICARE, OTHER ==
--- NOTE | 2020-11-26 21:15 | EDM.PDOC ---
ED HPI GENERAL MEDICAL PROBLEM - General Chief Complaint: Neuro Symptoms/Deficits Stated Complaint: MEDICAL VIA NORTH Time Seen by Provider: 11/26/20 21:15 Source of Information: Reports: Patient, EMS, RN History Limitations: Reports: Uncooperative - History of Present Illness INITIAL COMMENTS - FREE TEXT/NARRATIVE: Patient is a 65-year-old male who presents from local assisted living via EMS secondary to falls that have been occurring over the last day or so he is fairly uncooperative is a poor historian has turned over on his side and will not keep his eyes open and talk with me exam is limited by his cooperation patient does tell me his name he knows it summertime he knows that he is at [facility] he states also when I asked why he is here that he had been falling a couple of times but he did not complain of any pain discomfort or symptoms otherwise PMH/Meds--reviewed in EMR Allergies--doxy, indomethacin, perphenazine - Related Data Allergies Allergy/AdvReac Type Severity Reaction Status Date / Time doxycycline Allergy Severe Difficulty Verified 11/26/20 20:53 Breathing indomethacin Allergy Cannot Verified 11/26/20 20:53 Remember perphenazine Allergy Cannot Verified 11/26/20 20:53 Remember Home Meds: Home Meds Aspirin [Halfprin] 81 mg PO DAILY 03/05/19 [History] Cholecalciferol (Vitamin D3) [Vitamin D3] 2,000 unit PO DAILY 03/05/19 [History] Docusate Sodium [Colace] 100 mg PO DAILY 03/05/19 [History] [place] Carbonate [Eskalith CR] 450 mg PO BEDTIME 03/05/19 [History] Pantoprazole [ProTONIX] 40 mg PO BEDTIME 03/05/19 [History] atorvaSTATin [Lipitor] 20 mg PO BEDTIME 03/05/19 [History] cloZAPine 400 mg PO BEDTIME 03/05/19 [History] lisinopriL [Lisinopril] 40 mg PO DAILY 03/05/19 [History] metFORMIN HCl [Metformin HCl] 1,000 mg PO BID 03/05/19 [History] Blood-Glucose Control, Low [True Metrix] 1 each PO DAILY 05/08/20 [History] [place] Carbonate 300 mg PO BEDTIME 05/08/20 [History] Multivitamins/Min/Ca/FA/Iron [Thera-M] 1 tab PO DAILY 05/08/20 [History] Lactobacillus Rhamnosus GG [Culturelle] 1 cap PO BID #60 cap 05/13/20 [Rx] Past Medical History HEENT History: Reports: Impaired Vision Cardiovascular History: Reports: High Cholesterol, Hypertension Gastrointestinal History: Reports: GERD Musculoskeletal History: Reports: Gout Psychiatric History: Reports: Addiction, Bipolar, Schizophrenia, Suicide Attempt, Other (See Below) Other Psychiatric History: alcohol abuse history Endocrine/Metabolic History: Reports: Diabetes, Type II, Obesity/BMI 30+ - Infectious Disease History Infectious Disease History: Reports: Chicken Pox, Mumps, Novel Coronavirus, Other (See Below) - Past Surgical History Head Surgeries/Procedures: Reports: None HEENT Surgical History: Reports: None Cardiovascular Surgical History: Reports: None GI Surgical History: Reports: None Endocrine Surgical History: Reports: None Musculoskeletal Surgical History: Reports: None Dermatological Surgical History: Reports: None Social & Family History - Family History Family Medical History: Unobtainable - Tobacco Use Tobacco Use Status *Q: Never Tobacco User - Caffeine Use Caffeine Use: Reports: Soda Other Caffeine Use: unkown ED ROS GENERAL - Review of Systems Review Of Systems: Unable To Obtain Reason Not Obtained: patient poor historian/uncooperative ED EXAM, GENERAL - Physical Exam Exam: See Below Exam Limited By: Uncooperative General Appearance: Alert, No Apparent Distress, Obese Eye Exam: Bilateral Eye: EOMI, Normal Inspection, PERRL Ears: Normal External Exam Nose: Normal Inspection Throat/Mouth: Normal Voice, No Airway Compromise Head: Atraumatic, Normocephalic Neck: Normal Inspection, Supple, Non-Tender, Full Range of Motion Respiratory/Chest: No Respiratory Distress, Lungs Clear, Normal Breath Sounds, Chest Non-Tender Cardiovascular: Normal Peripheral Pulses, Regular Rate, Rhythm, No Edema, No Murmur Peripheral Pulses: 2+: Radial (L), Radial (R) GI/Abdominal: Normal Bowel Sounds, Soft, Non-Tender, No Distention, Other (obese) (Male) Exam: Deferred Rectal (Males) Exam: Deferred Back Exam: Normal Inspection Extremities: Normal Inspection, No Pedal Edema, Normal Capillary Refill Neurological: Alert (knows self, at [facility], and that its summer--would not answer any other questions), No Motor/Sensory Deficits, Other (unable to fully assess CN and neurological status due to patient cooperation) Psychiatric: Normal Affect, Normal Mood Skin Exam: Warm, Dry, Intact, Normal Color Course - Vital Signs Text/Narrative:: Discussed with patient today's ER findings no acute processes noted has some mild anemia and mild chronic renal insufficiency CT scan was unremarkable for any acute concerns at this point will return patient to assisted living facility and recommend primary care follow-up in the next 2 to 3 days Last Recorded V/S: Last Vital Signs Temp 97.8 F 11/26/20 20:52 Pulse 69 11/26/20 21:54 Resp 14 11/26/20 21:54 BP 90/40 L 11/26/20 21:54 Pulse Ox 96 11/26/20 21:54 - Orders/Labs/Meds Labs: Laboratory Tests 11/26/20 11/26/20 11/26/20 Range/Units 21:30 21:30 22:08 WBC 9.8 (4.5-11.0) K/uL RBC 3.48 L (4.30-5.90) M/uL Hgb 10.0 L (12.0-15.0) g/dL Hct 31.6 L (40.0-54.0) % MCV 91 (80-98) fL MCH 29 (27-31) pg MCHC 32 (32-36) % Plt Count 219 (150-400) K/uL Neut % (Auto) 54.2 (36-66) % Lymph % (Auto) 31.3 (24-44) % [place] % (Auto) 8.6 H (2-6) % Eos % (Auto) 5.5 H (2-4) % Baso % (Auto) 0.4 (0-1) % Sodium 140 (140-148) mmol/L Potassium 4.2 (3.6-5.2) mmol/L Chloride 104 (100-108) mmol/L Carbon Dioxide 25 (21-32) mmol/L Anion Gap 10.9 (5.0-14.0) mmol/L BUN 36 H (7-18) mg/dL Creatinine 1.6 H (0.8-1.3) mg/dL Est Cr Clr Drug Dosing 49.68 mL/min Estimated GFR (MDRD) 44 L (>60) Glucose 117 H (74-106) mg/dL Calcium 9.0 (8.5-10.1) mg/dL Total Bilirubin 0.2 (0.2-1.0) mg/dL AST 12 L (15-37) U/L ALT 31 (12-78) U/L Alkaline Phosphatase 69 (46-116) U/L Total Protein 6.1 L (6.4-8.2) g/dL Albumin 3.3 L (3.4-5.0) g/dL Globulin 2.8 (2.3-3.5) g/dL Albumin/Globulin Ratio 1.2 (1.2-2.2) Urine Color Yellow (YELLOW) Urine Appearance Clear (CLEAR) Urine pH 5.5 (5.0-8.0) Ur Specific [place] 1.015 (1.008-1.030) Urine Protein Negative (NEGATIVE) mg/dL Urine Glucose (UA) Negative (NEGATIVE) mg/dL Urine Ketones Negative (NEGATIVE) mg/dL Urine Occult Blood Negative (NEGATIVE) Urine Nitrite Negative (NEGATIVE) Urine Bilirubin Negative (NEGATIVE) Urine Urobilinogen 0.2 (0.2-1.0) EU/dL Ur Leukocyte Esterase Negative (NEGATIVE) Urine RBC 0-5 (0-5) Urine WBC 0-5 (0-5) Ur Epithelial Cells Rare Amorphous Sediment Not seen Urine Bacteria Not seen Urine Mucus Not seen - Radiology Interpretation CT Results Date: 11/26/20 CT Results Time: 23:54 (No acute process see report for full details CT head) Departure - Departure Time of Disposition: 23:59 Disposition: Admitted As Inpatient 67 Condition: Good Clinical Impression: Falls frequently, Anemia, unspecified, Chronic renal insufficiency, stage III (moderate) - Discharge Information *PRESCRIPTION DRUG MONITORING PROGRAM REVIEWED*: Not Applicable *COPY OF PRESCRIPTION DRUG MONITORING REPORT IN PATIENT LULÚ: Not Applicable Instructions: Fall Prevention in the Home, Adult, [id number] Referrals: PCP,None [Primary Care Provider] - Forms: ED Department Discharge Additional Instructions: follow up with your family doctor for further questions or concerns about your reported falls Sepsis Event Note (ED) - Evaluation Sepsis Screening Result: No Definite Risk - Focused Exam Vital Signs: Vital Signs Temp Pulse Resp BP Pulse Ox 11/26/20 21:54 69 14 90/40 L 96 11/26/20 20:52 97.8 F 72 20 140/64 96
--- NOTE | 2020-11-26 22:49 | CRLCT ---
For Patients: As a result of the Century Cures Act, medical imaging exams and procedure reports are released immediately into your electronic medical record. You may view this report before your referring provider. If you have questions, please contact your health care provider. INDICATION: Pain after fall COMPARISON: CT of the head from 11/01/2020 TECHNIQUE: CT examination of the head was performed with 3 mm thick axial sections without intravenous contrast. Images were obtained from the vertex of the skull through the skull base, and I examined the images with the brain and bone windows. Please note that all CT scans at this facility use dose modulation, iterative reconstruction, and/or weight-based dosing when appropriate to reduce radiation dose to as low as reasonably achievable. FINDINGS: There is mild patient motion through the skullbase, degrading sensitivity, especially on the bone windows. Today`s study is diagnostic for the soft tissue structures of the brain. The brain is normal in appearance for the patient`s age on today`s study, with no sign of mass lesion, mass effect, hemorrhage, or edema. There is stable mild dilatation of the ventricles and sulci representing age-appropriate atrophy. There is stable mild periventricular and subcortical white matter hypodensity representing age-appropriate small vessel ischemia. The visualized portions of the orbits are normal in appearance. The visualized paranasal sinuses and mastoids are clear. The osseous structures are normal in their appearance with no sign of abnormality in the skull base or calvarium. IMPRESSION: No sign of closed head injury. Stable mild, age-appropriate atrophy and mild, age-appropriate small-vessel ischemic changes. Sensitivity for osseous abnormalities at the skullbase markedly limited by patient motion. Please note that all CT scans at this facility use dose modulation, iterative reconstruction, and/or weight-based dosing when appropriate to reduce radiation dose to as low as reasonably achievable. Dictated by Bebo Hawkins MD @ 11/26/2020 10:46:[address] Bebo Hawkins @ Nov 26 2020 10:46PM
== END 2020-11-27 08:33 | disposition critical access hospital (66) ==
LOC: JP.ED 20:44
DX: I12.9 Hypertensive chronic kidney disease with stage 1 through stage 4 chronic kidney disease, or unspecified chronic kidney disease (principal); E11.22 Type 2 diabetes mellitus with diabetic chronic kidney disease; N18.30 Chronic kidney disease, stage 3 unspecified; D63.1 Anemia in chronic kidney disease; R29.6 Repeated falls; E78.00 Pure hypercholesterolemia, unspecified; K21.9 Gastro-esophageal reflux disease without esophagitis; M10.9 Gout, unspecified; E66.9 Obesity, unspecified; Z68.34 Body mass index [BMI] 34.0-34.9, adult; Z86.16 Personal history of COVID-19; Z88.1 Allergy status to other antibiotic agents; Z88.8 Allergy status to other drugs, medicaments and biological substances; Z79.82 Long term (current) use of aspirin; Z79.84 Long term (current) use of oral hypoglycemic drugs; Z79.899 Other long term (current) drug therapy
CPT/HCPCS: 36415; 70450; 80053; 81001; 85025; 99285-25

== ENCOUNTER 2021-02-24 08:51 | Emergency (ER) | payer MEDICARE, OTHER ==
--- NOTE | 2021-02-24 09:08 | EDM.PDOC ---
ED HPI GENERAL MEDICAL PROBLEM - General Chief Complaint: General Stated Complaint: MEDICAL VIA NORTH Time Seen by Provider: 02/24/21 08:55 Source of Information: Reports: Patient, EMS, Old Records, RN History Limitations: Reports: Other (poor historian, assisted living facility did not call us) - History of Present Illness INITIAL COMMENTS - FREE TEXT/NARRATIVE: 65 yo male was referred to the ER today by EMS for possible light headedness. Has a PHx of recurrent UTI's. No fever, cough or pain reported by César. He lives at a local assisted living facility. He ate breakfast before arrival. He notes frequent urination. Onset: Today, Unknown/Unsure Duration: Minutes: Location: Reports: Generalized Quality: Reports: Other (pain not reported) Severity: Moderate Improves with: Reports: None Worsens with: Reports: None Context: Reports: Other (See HPI) Associated Symptoms: Reports: Other (urinary frequency) Treatments WANT AD RECEIVER: Reports: Other (see below) (none) - Related Data Allergies Allergy/AdvReac Type Severity Reaction Status Date / Time doxycycline Allergy Severe Difficulty Verified 02/24/21 09:02 Breathing indomethacin Allergy Cannot Verified 02/24/21 09:02 Remember perphenazine Allergy Cannot Verified 02/24/21 09:02 Remember Home Meds: Home Meds Aspirin [Halfprin] 81 mg PO DAILY 03/05/19 [History] Cholecalciferol (Vitamin D3) [Vitamin D3] 2,000 unit PO DAILY 03/05/19 [History] Docusate Sodium [Colace] 100 mg PO DAILY 03/05/19 [History] [place] Carbonate [Eskalith CR] 450 mg PO BEDTIME 03/05/19 [History] Pantoprazole [ProTONIX] 40 mg PO BEDTIME 03/05/19 [History] atorvaSTATin [Lipitor] 20 mg PO BEDTIME 03/05/19 [History] cloZAPine 400 mg PO BEDTIME 03/05/19 [History] lisinopriL [Lisinopril] 40 mg PO DAILY 03/05/19 [History] metFORMIN HCl [Metformin HCl] 1,000 mg PO BID 03/05/19 [History] Blood-Glucose Control, Low [True Metrix] 1 each PO DAILY 05/08/20 [History] [place] Carbonate 300 mg PO BEDTIME 05/08/20 [History] Multivitamins/Min/Ca/FA/Iron [Thera-M] 1 tab PO DAILY 05/08/20 [History] Lactobacillus Rhamnosus GG [Culturelle] 1 cap PO BID #60 cap 05/13/20 [Rx] Acetaminophen 500 mg PO BID 02/24/21 [History] Alfuzosin HCl [Alfuzosin HCl ER] 10 mg PO DAILY #30 tab.er.24h 02/24/21 [Rx] Benztropine [Cogentin] 1 mg PO DAILY 02/24/21 [History] hydroCHLOROthiazide [Hydrochlorothiazide] 12.5 mg PO ASDIRECTED 02/24/21 [History] Past Medical History HEENT History: Reports: Impaired Vision Cardiovascular History: Reports: High Cholesterol, Hypertension Gastrointestinal History: Reports: GERD Musculoskeletal History: Reports: Gout Psychiatric History: Reports: Addiction, Bipolar, Schizophrenia, Suicide Attempt, Other (See Below) Other Psychiatric History: alcohol abuse history Endocrine/Metabolic History: Reports: Diabetes, Type II, Obesity/BMI 30+ - Infectious Disease History Infectious Disease History: Reports: Chicken Pox, Mumps, Novel Coronavirus, Other (See Below) - Past Surgical History Head Surgeries/Procedures: Reports: None HEENT Surgical History: Reports: None Cardiovascular Surgical History: Reports: None GI Surgical History: Reports: None Endocrine Surgical History: Reports: None Musculoskeletal Surgical History: Reports: None Dermatological Surgical History: Reports: None Social & Family History - Family History Family Medical History: Unobtainable - Caffeine Use Caffeine Use: Reports: Soda Other Caffeine Use: unkown ED ROS GENERAL - Review of Systems Review Of Systems: See Below Constitutional: Reports: No Symptoms HEENT: Reports: No Symptoms Respiratory: Reports: No Symptoms Cardiovascular: Reports: No Symptoms GI/Abdominal: Reports: No Symptoms : Reports: Frequency Musculoskeletal: Reports: No Symptoms Skin: Reports: No Symptoms Neurological: Reports: No Symptoms Psychiatric: Reports: No Symptoms ED EXAM, GENERAL - Physical Exam Exam: See Below Exam Limited By: No Limitations General Appearance: Alert, WD/WN, No Apparent Distress Eye Exam: Bilateral Eye: Normal Inspection Ears: Normal External Exam, Normal Canal, Hearing Grossly Normal, Normal TMs Ear Exam: Bilateral Ear: Auricle Normal, Canal Normal Nose: Normal Inspection, No Blood Throat/Mouth: Normal Inspection, Normal Lips, Normal Oropharynx, Normal Voice, No Airway Compromise Head: Atraumatic, Normocephalic Neck: Normal Inspection Respiratory/Chest: No Respiratory Distress, Lungs Clear, Normal Breath Sounds, No Accessory Muscle Use Cardiovascular: Regular Rate, Rhythm, No Edema GI/Abdominal: Soft, Non-Tender Extremities: Normal Inspection, Normal Range of Motion, Non-Tender, No Pedal Edema Neurological: Alert, Oriented, CN II-XII Intact, Normal Cognition, No Motor/Sensory Deficits Psychiatric: Normal Affect, Normal Mood Skin Exam: Warm, Dry, Intact, Normal Color, No Rash Course - Vital Signs Text/Narrative:: Post-void bladder scan about 300 ml Last Recorded V/S: Last Vital Signs Temp 36.7 C 02/24/21 08:59 Pulse 65 02/24/21 08:59 Resp 20 02/24/21 08:59 BP 127/50 L 02/24/21 08:59 Pulse Ox 95 02/24/21 08:59 - Orders/Labs/Meds Orders: Active Orders 24 hr Category Date Time Status Bladder Scan [RC] ASDIRECTED Care 02/24/21 09:05 Active LITHIUM (ESKALITH(R)), SERUM Stat Lab 02/24/21 09:09 Received Sodium Chloride 0.9% [Normal Saline] 1,000 ml Med 02/24/21 10:40 Active IV .BOLUS Medication Orders Sodium Chloride (Normal Saline) 1,000 mls @ 1,000 mls/hr IV .BOLUS ONE Stop: 02/24/21 11:39 Last Admin: 02/24/21 10:55 Dose: 1,000 mls/hr Documented by: ESTELITA Labs: Laboratory Tests 02/24/21 02/24/21 02/24/21 Range/Units 09:09 09:09 09:09 WBC 12.5 H (4.5-11.0) K/uL RBC 3.93 L (4.30-5.90) M/uL Hgb 11.2 L (12.0-15.0) g/dL Hct 35.4 L (40.0-54.0) % MCV 90 (80-98) fL MCH 29 (27-31) pg MCHC 32 (32-36) % Plt Count 208 (150-400) K/uL Sodium 139 L (140-148) mmol/L Potassium 4.2 (3.6-5.2) mmol/L Chloride 103 (100-108) mmol/L Carbon Dioxide 25 (21-32) mmol/L Anion Gap 15.2 H (5.0-14.0) mmol/L BUN 33 H (7-18) mg/dL Creatinine 1.8 H (0.8-1.3) mg/dL Est Cr Clr Drug Dosing 44.16 mL/min Estimated GFR (MDRD) 38 L (>60) Glucose 134 H (74-106) mg/dL Calcium 9.2 (8.5-10.1) mg/dL Troponin I < 0.017 (0.000-0.056) ng/mL Urine Color (YELLOW) Urine Appearance (CLEAR) Urine pH (5.0-8.0) Ur Specific [place] (1.008-1.030) Urine Protein (NEGATIVE) mg/dL Urine Glucose (UA) (NEGATIVE) mg/dL Urine Ketones (NEGATIVE) mg/dL Urine Occult Blood (NEGATIVE) Urine Nitrite (NEGATIVE) Urine Bilirubin (NEGATIVE) Urine Urobilinogen (0.2-1.0) EU/dL Ur Leukocyte Esterase (NEGATIVE) Urine RBC (0-5) Urine WBC (0-5) Ur Epithelial Cells Amorphous Sediment Urine Bacteria Urine Mucus Urine Other 02/24/21 Range/Units 09:58 WBC (4.5-11.0) K/uL RBC (4.30-5.90) M/uL Hgb (12.0-15.0) g/dL Hct (40.0-54.0) % MCV (80-98) fL MCH (27-31) pg MCHC (32-36) % Plt Count (150-400) K/uL Sodium (140-148) mmol/L Potassium (3.6-5.2) mmol/L Chloride (100-108) mmol/L Carbon Dioxide (21-32) mmol/L Anion Gap (5.0-14.0) mmol/L BUN (7-18) mg/dL Creatinine (0.8-1.3) mg/dL Est Cr Clr Drug Dosing mL/min Estimated GFR (MDRD) (>60) Glucose (74-106) mg/dL Calcium (8.5-10.1) mg/dL Troponin I (0.000-0.056) ng/mL Urine Color Yellow (YELLOW) Urine Appearance Slightly cloudy A (CLEAR) Urine pH 6.0 (5.0-8.0) Ur Specific [place] 1.025 (1.008-1.030) Urine Protein Negative (NEGATIVE) mg/dL Urine Glucose (UA) Negative (NEGATIVE) mg/dL Urine Ketones Negative (NEGATIVE) mg/dL Urine Occult Blood Negative (NEGATIVE) Urine Nitrite Negative (NEGATIVE) Urine Bilirubin Negative (NEGATIVE) Urine Urobilinogen 0.2 (0.2-1.0) EU/dL Ur Leukocyte Esterase Negative (NEGATIVE) Urine RBC Not seen (0-5) Urine WBC 0-5 (0-5) Ur Epithelial Cells Few Amorphous Sediment Not seen Urine Bacteria Not seen Urine Mucus Moderate Urine Other Meds: Medications Generic Name Dose Route Start Last Admin Trade Name Freq PRN Reason Stop Dose Admin Sodium Chloride 1,000 mls @ 1,000 mls/hr 02/24/21 10:40 02/24/21 10:55 Normal Saline IV 02/24/21 11:39 1,000 mls/hr .BOLUS ONE Administration Departure - Departure Time of Disposition: 11:55 Disposition: Home, Self-Care 01 Condition: Fair Clinical Impression: Mild dehydration, BPH with obstruction/lower urinary tract symptoms - Discharge Information *PRESCRIPTION DRUG MONITORING PROGRAM REVIEWED*: Not Applicable *COPY OF PRESCRIPTION DRUG MONITORING REPORT IN PATIENT LULÚ: Not Applicable Referrals: PCP,Unknown [Primary Care Provider] - Forms: ED Department Discharge Additional Instructions: Add alfuzocin ER 10 mg daily, next dose at bedtime tomorrow to his current medication list. Should recheck with his primary care provider in the next 1-2 weeks. Return as needed. Sepsis Event Note (ED) - Evaluation Sepsis Screening Result: No Definite Risk - Focused Exam Vital Signs: Vital Signs Temp Pulse Resp BP Pulse Ox 02/24/21 08:59 36.7 C 65 20 127/50 L 95 - My Orders Last 24 Hours: My Active Orders 02/24/21 09:05 Bladder Scan [RC] ASDIRECTED 02/24/21 09:09 LITHIUM (ESKALITH(R)), SERUM Stat 02/24/21 10:40 Sodium Chloride 0.9% [Normal Saline] 1,000 ml IV .BOLUS - Assessment/Plan Last 24 Hours: My Active Orders 02/24/21 09:05 Bladder Scan [RC] ASDIRECTED 02/24/21 09:09 LITHIUM (ESKALITH(R)), SERUM Stat 02/24/21 10:40 Sodium Chloride 0.9% [Normal Saline] 1,000 ml IV .BOLUS
[2021-02-24] MEDS ORDERED: Sodium Chloride 0.9% 1,000 ML IV ONE (10:40)
[2021-02-24] MEDS ORDERED: Alfuzosin 10 MG Tab.ER PO ONE (10:58)
== END 2021-02-24 12:18 | disposition home or self-care (01) ==
LOC: JP.ED 08:51
DX: E86.0 Dehydration (principal); N40.1 Benign prostatic hyperplasia with lower urinary tract symptoms; E78.00 Pure hypercholesterolemia, unspecified; I10 Essential (primary) hypertension; K21.9 Gastro-esophageal reflux disease without esophagitis; E11.9 Type 2 diabetes mellitus without complications; E66.9 Obesity, unspecified; Z86.16 Personal history of COVID-19; Z79.899 Other long term (current) drug therapy; Z79.82 Long term (current) use of aspirin; Z79.84 Long term (current) use of oral hypoglycemic drugs; Z88.8 Allergy status to other drugs, medicaments and biological substances; Z88.1 Allergy status to other antibiotic agents
CPT/HCPCS: 36415; 51798; 80048; 80178; 81001; 84484; 85027; 99283; A9270; J7030

== ENCOUNTER 2021-08-03 03:26 | Inpatient (IN) | payer MEDICARE ==
[2021-08-03] MEDS ORDERED: Sodium Chloride 0.9% 10 ML Syringe FLUSH PRN (03:38)
[2021-08-03] MEDS ORDERED: Acetaminophen/HYDROcodone 325-5 MG Tab PO PRN (05:45)
[2021-08-03] MEDS ORDERED: Docusate Sodium 100 MG Cap PO PRN (05:45)
[2021-08-03] MEDS ORDERED: Acetaminophen 325 MG Tab PO PRN (05:45)
[2021-08-03] MEDS ORDERED: Ondansetron 4 MG Tab.DIS PO PRN (05:45)
[2021-08-03] MEDS ORDERED: Morphine 2 MG/ML SYRINGE IVPUSH PRN (05:45)
[2021-08-03] MEDS ORDERED: Albuterol 0.083% 2.5 MG/3 ML Neb Soln NEB PRN (05:45)
[2021-08-03 06:35] LABS: CORONAVIRUS COVID-19 NAA NEGATIVE (NEGATIVE)
[2021-08-03] MEDS ORDERED: metFORMIN 500 MG Tab PO SCH (08:00)
[2021-08-03] MEDS: Lisinopril 20 MG Tab PO SCH (09:42)
[2021-08-03] MEDS: Acetaminophen 500 MG Tab PO SCH ×2 (09:42→20:44)
[2021-08-03] MEDS: Aspirin 81 MG Tab.EC PO SCH (09:42)
[2021-08-03] MEDS: Lactobacillus Rhamnosus GG (Probiotic) Cap PO SCH ×2 (09:42→20:43)
[2021-08-03] MEDS: Docusate Sodium 100 MG Cap PO SCH (09:42)
[2021-08-03] MEDS ORDERED: Glucose Gel 15 GM in 37.5 GM Tube PO PRN (12:22)
[2021-08-03] MEDS ORDERED: 50% Dextrose in Water 50 ML Syringe IV PRN (12:22)
[2021-08-03] MEDS: Clopidogrel 75 MG Tab PO SCH (12:56)
[2021-08-03] MEDS: Insulin Lispro 100 Unit/ML 3 ML KwikPen SUBCUT SCH ×2 (16:59→21:05)
[2021-08-03] MEDS: cefTRIAXone 1 GM in Sodium Chloride 0.9% 50 ML IV SCH (17:29)
[2021-08-03] MEDS: Pantoprazole 40 MG Tab.CR PO SCH (20:44)
[2021-08-03] MEDS: Alfuzosin 10 MG Tab.ER PO SCH (20:45)
[2021-08-03] MEDS ORDERED: atorvaSTATin 20 MG Tab PO SCH (21:00)
[2021-08-03] MEDS ORDERED: CLOZAPINE 50 MG PO SCH (21:00)
[2021-08-03] MEDS ORDERED: Hypromellose 0.3% Ophth Soln 15 ML Bottle EYEBOTH PRN (21:49)
[2021-08-04] MEDS: Insulin Lispro 100 Unit/ML 3 ML KwikPen SUBCUT SCH ×4 (07:51→21:27)
[2021-08-04] MEDS ORDERED: CLOZAPINE 100 MG PO SCH (09:00)
[2021-08-04] MEDS: CLOZAPINE 100 MG PO SCH (09:18)
[2021-08-04] MEDS: Lisinopril 20 MG Tab PO SCH (09:19)
[2021-08-04] MEDS: Lactobacillus Rhamnosus GG (Probiotic) Cap PO SCH ×2 (09:19→21:24)
[2021-08-04] MEDS: Clopidogrel 75 MG Tab PO SCH (09:19)
[2021-08-04] MEDS: Aspirin 81 MG Tab.EC PO SCH (09:19)
[2021-08-04] MEDS: Hydrochlorothiazide 12.5 MG Cap PO SCH (09:19)
[2021-08-04] MEDS: Docusate Sodium 100 MG Cap PO SCH (09:19)
[2021-08-04] MEDS: Acetaminophen 500 MG Tab PO SCH ×2 (11:54→21:25)
[2021-08-04] MEDS: cefTRIAXone 1 GM in Sodium Chloride 0.9% 50 ML IV SCH (17:00)
[2021-08-04] MEDS ORDERED: CLOZAPINE 50 MG PO SCH (21:00)
[2021-08-04] MEDS: Alfuzosin 10 MG Tab.ER PO SCH (21:24)
[2021-08-04] MEDS: Pantoprazole 40 MG Tab.CR PO SCH (21:25)
[2021-08-04] MEDS: atorvaSTATin 20 MG Tab PO SCH (21:26)
[2021-08-05] MEDS: Insulin Lispro 100 Unit/ML 3 ML KwikPen SUBCUT SCH ×2 (08:18→13:08)
[2021-08-05] MEDS: CLOZAPINE 100 MG PO SCH (08:22)
[2021-08-05] MEDS: Lactobacillus Rhamnosus GG (Probiotic) Cap PO SCH ×2 (08:23→20:50)
[2021-08-05] MEDS: Lisinopril 20 MG Tab PO SCH (08:23)
[2021-08-05] MEDS: Clopidogrel 75 MG Tab PO SCH (08:23)
[2021-08-05] MEDS: Aspirin 81 MG Tab.EC PO SCH (08:23)
[2021-08-05] MEDS: Docusate Sodium 100 MG Cap PO SCH (08:23)
[2021-08-05] MEDS: Acetaminophen 500 MG Tab PO SCH ×2 (08:24→20:50)
[2021-08-05] MEDS ORDERED: BENZTROPINE 0.5 MG PO SCH (16:00)
[2021-08-05] MEDS ORDERED: Benztropine 1 MG Tab PO SCH (17:00)
[2021-08-05] MEDS ORDERED: metFORMIN 500 MG Tab PO SCH (17:00)
[2021-08-05] MEDS: atorvaSTATin 20 MG Tab PO SCH (20:50)
[2021-08-05] MEDS: Pantoprazole 40 MG Tab.CR PO SCH (20:50)
[2021-08-05] MEDS: Alfuzosin 10 MG Tab.ER PO SCH (20:50)
[2021-08-05] MEDS: Cephalexin 250 MG Cap PO SCH (20:50)
[2021-08-05] MEDS ORDERED: CLOZAPINE 50 MG PO SCH (21:00)
[2021-08-05] MEDS ORDERED: CLOZAPINE 300 MG PO SCH (21:00)
[2021-08-06] MEDS ORDERED: metFORMIN 500 MG Tab PO SCH (07:30)
[2021-08-06] MEDS: Hydrochlorothiazide 12.5 MG Cap PO SCH (08:20)
[2021-08-06] MEDS: Docusate Sodium 100 MG Cap PO SCH (08:21)
[2021-08-06] MEDS: Aspirin 81 MG Tab.EC PO SCH (08:21)
[2021-08-06] MEDS: Cephalexin 250 MG Cap PO SCH (08:22)
[2021-08-06] MEDS: Lisinopril 20 MG Tab PO SCH (08:22)
[2021-08-06] MEDS: Clopidogrel 75 MG Tab PO SCH (08:22)
[2021-08-06] MEDS: Lactobacillus Rhamnosus GG (Probiotic) Cap PO SCH (08:22)
[2021-08-06] MEDS: Acetaminophen 500 MG Tab PO SCH (08:23)
[2021-08-06] MEDS ORDERED: CLOZAPINE 100MG TAB (PTOM) PO SCH (21:00)
== END 2021-08-06 15:12 | disposition home health service (06) | DRG 65 ==
LOC: JP.ED 03:26 → JP.MS 04:56
PROVIDERS: ADMIT Hospitalist; ATTEND Internal Medicine
DX: I63.9 Cerebral infarction, unspecified (principal); G81.94 Hemiplegia, unspecified affecting left nondominant side; N39.0 Urinary tract infection, site not specified; R47.01 Aphasia; I10 Essential (primary) hypertension; Z66 Do not resuscitate; R47.1 Dysarthria and anarthria; Z51.5 Encounter for palliative care; Z20.822 Contact with and (suspected) exposure to COVID-19; H54.7 Unspecified visual loss; F10.21 Alcohol dependence, in remission; E78.00 Pure hypercholesterolemia, unspecified; R29.716 NIHSS score 16; I12.9 Hypertensive chronic kidney disease with stage 1 through stage 4 chronic kidney disease, or unspecified chronic kidney disease; B96.1 Klebsiella pneumoniae [K. pneumoniae] as the cause of diseases classified elsewhere; K21.9 Gastro-esophageal reflux disease without esophagitis; M10.9 Gout, unspecified; F31.9 Bipolar disorder, unspecified; E66.9 Obesity, unspecified; F20.9 Schizophrenia, unspecified; E11.22 Type 2 diabetes mellitus with diabetic chronic kidney disease; E78.5 Hyperlipidemia, unspecified; Z88.1 Allergy status to other antibiotic agents; Z88.8 Allergy status to other drugs, medicaments and biological substances; Z79.82 Long term (current) use of aspirin; Z79.899 Other long term (current) drug therapy; Z79.84 Long term (current) use of oral hypoglycemic drugs; Z68.32 Body mass index [BMI] 32.0-32.9, adult; Z86.16 Personal history of COVID-19
CPT/HCPCS: 0241U; 36415; 70450; 80053; 81001; 82947; 83605; 85025; 85610; 85730; 87086; 87088; 87186; 93005; 93010; 97110-GO; 97110-GP; 97162-GP; 97166-GO; 97530-GP; 97535-GP; 99222; 99232; 99238; 99285-25; 99291; A9270-GY; J0696; J1815; J3490

== ENCOUNTER 2022-04-27 06:05 | Emergency (ER) | payer MEDICARE ==
[2022-04-27 06:44] LABS: ESTIMATED GFR 56 mL/min (>60)
[2022-04-27 06:52] LABS: CORONAVIRUS COVID-19 NAA NEGATIVE (NEGATIVE)
[2022-04-27] MEDS ORDERED: cefTRIAXone 2 GM in Sodium Chloride 0.9% 50 ML IV ONE (06:53)
[2022-04-27] MEDS ORDERED: Sodium Chloride 0.9% 1,000 ML IV SCH (07:00)
[2022-04-27] MEDS ORDERED: Oseltamivir 75 MG Cap PO ONE (08:49)
[2022-04-27] MEDS ORDERED: Acetaminophen 500 MG Tab PO ONE (10:23)
== END 2022-04-27 14:04 ==
LOC: JP.ED 06:05
DX: J10.1 Influenza due to other identified influenza virus with other respiratory manifestations (principal); J12.9 Viral pneumonia, unspecified; R74.01 Elevation of levels of liver transaminase levels; R74.02 Elevation of levels of lactic acid dehydrogenase [LDH]; D64.9 Anemia, unspecified; E11.9 Type 2 diabetes mellitus without complications; I12.9 Hypertensive chronic kidney disease with stage 1 through stage 4 chronic kidney disease, or unspecified chronic kidney disease; E11.22 Type 2 diabetes mellitus with diabetic chronic kidney disease; N18.31 Chronic kidney disease, stage 3a; K21.9 Gastro-esophageal reflux disease without esophagitis; E78.00 Pure hypercholesterolemia, unspecified; E66.9 Obesity, unspecified; Z68.33 Body mass index [BMI] 33.0-33.9, adult; Z79.82 Long term (current) use of aspirin; Z79.899 Other long term (current) drug therapy
CPT/HCPCS: 0241U; 36415; 71045; 74176; 80053; 80307; 81001; 83605; 84145; 85025; 87040; 96365; 99285; A9270; J0696; J7030

== ENCOUNTER 2022-10-16 11:47 | Emergency (ER) | payer MEDICARE ==
[2022-10-16] MEDS ORDERED: Sodium Chloride 0.9% 10 ML Syringe FLUSH PRN (11:53)
[2022-10-16 12:11] LABS: BASOPHILS ABSOLUTE AUTO 0.05 K/uL (0.00-0.10); BASOPHILS PERCENT AUTO 0.6 % (0.1-1.3); EOSINOPHILS ABSOLUTE AUTO 0.32 K/uL (0.00-0.40); EOSINOPHILS PERCENT AUTO 3.9 % (0.0-5.4); HEMATOCRIT 36.3 % (38.4-49.7); HEMOGLOBIN 11.9 g/dL (12.9-16.9); IMMATURE GRAN ABSOLUTE AUTO 0.05 K/uL (0.00-0.23); IMMATURE GRAN PERCENT AUTO 0.6 % (0.0-0.7); LYMPHOCYTES ABSOLUTE AUTO 2.89 K/uL (0.8-3.3); LYMPHOCYTES PERCENT AUTO 35.6 % (11.4-47.7); MEAN CORPUSCULAR HGB CONC 32.8 g/dL (31.6-35.5); MEAN CORPUSCULAR VOLUME 85.4 fL (81.4-99.0); MONOCYTES ABSOLUTE AUTO 0.43 K/uL (0.20-0.90); MONOCYTES PERCENT AUTO 5.3 % (3.3-12.6); NEUTROPHILS ABSOLUTE AUTO 4.37 K/uL (1.0-7.6); PLATELET COUNT,PLT 212 K/uL (130-375); RED BLOOD CELL COUNT 4.25 M/uL (4.14-5.76); WHITE BLOOD CELL COUNT,WBC 8.1 K/uL (3.2-11.0)
[2022-10-16] MEDS ORDERED: Sodium Chloride 0.9% 500 ML IV ONE (12:19)
[2022-10-16 12:34] LABS: ANION GAP 13.7 mmol/L (5.0-14.0); CALCIUM 8.9 mg/dL (8.5-10.1); CREATININE 1.5 mg/dL (0.8-1.3); EST CRCL DRUG DOSING (CG) 52.38 mL/min; POTASSIUM,K 4.3 mmol/L (3.6-5.2); TROPONIN I HIGH SENSITIVITY 5.3 pg/mL (<=60.3)
[2022-10-16] MEDS ORDERED: Magnesium Sulfate/Water 2 GM in Premix Bag 1 BAG IV ONE (12:51)
[2022-10-16 13:14] LABS: APPEARANCE,URINE CLEAR (CLEAR); BILIRUBIN,URINE NEGATIVE (NEGATIVE); COLOR,URINE YELLOW (YELLOW); GLUCOSE,URINE NEGATIVE (NEGATIVE); KETONES,URINE NEGATIVE (NEGATIVE); LEUKOCYTE ESTERASE,URINE NEGATIVE (NEGATIVE); NITRITE,URINE NEGATIVE (NEGATIVE); OCCULT BLOOD,URINE NEGATIVE (NEGATIVE); PROTEIN,URINE 100 mg/dL (NEGATIVE); UROBILINOGEN,URINE 0.2 EU/dL (0.2-1.0)
[2022-10-16 13:26] LABS: AMORPHOUS SEDIMENT,URINE NOT SEEN; BACTERIA,URINE NOT SEEN; EPITHELIAL CELLS,URINE FEW; MUCUS,URINE NOT SEEN; RBC,URINE 0-5 (0-5); WBC,URINE 0-5 (0-5)
== END 2022-10-16 19:50 | disposition home or self-care (01) ==
LOC: JP.ED 11:47
DX: I95.1 Orthostatic hypotension (principal); E78.00 Pure hypercholesterolemia, unspecified; I10 Essential (primary) hypertension; E11.9 Type 2 diabetes mellitus without complications; E66.9 Obesity, unspecified; K21.9 Gastro-esophageal reflux disease without esophagitis; Z79.84 Long term (current) use of oral hypoglycemic drugs; Z68.33 Body mass index [BMI] 33.0-33.9, adult; Z86.73 Personal history of transient ischemic attack (TIA), and cerebral infarction without residual deficits; Z86.16 Personal history of COVID-19; Z79.899 Other long term (current) drug therapy; Z87.891 Personal history of nicotine dependence
CPT/HCPCS: 36415; 70450; 80048; 81001; 83735; 84484; 85025; 93005; 96361; 96365; 96366; 99285; J3475; J3490; J7040

== ENCOUNTER 2023-04-07 12:02 | Emergency (ER) | payer MEDICARE ==
[2023-04-07 12:46] LABS: BASOPHILS ABSOLUTE AUTO 0.04 K/uL (0.00-0.10); BASOPHILS PERCENT AUTO 0.5 % (0.1-1.3); EOSINOPHILS ABSOLUTE AUTO 0.04 K/uL (0.00-0.40); EOSINOPHILS PERCENT AUTO 0.5 % (0.0-5.4); HEMATOCRIT 36.1 % (38.4-49.7); HEMOGLOBIN 12.1 g/dL (12.9-16.9); IMMATURE GRAN ABSOLUTE AUTO 0.04 K/uL (0.00-0.23); IMMATURE GRAN PERCENT AUTO 0.5 % (0.0-0.7); LYMPHOCYTES ABSOLUTE AUTO 1.58 K/uL (0.8-3.3); LYMPHOCYTES PERCENT AUTO 19.4 % (11.4-47.7); MEAN CORPUSCULAR HEMOGLOBIN 28.3 pg (31.6-35.5); MEAN CORPUSCULAR HGB CONC 33.5 g/dL (31.6-35.5); MEAN CORPUSCULAR VOLUME 84.3 fL (81.4-99.0); MONOCYTES ABSOLUTE AUTO 1.18 K/uL (0.20-0.90); MONOCYTES PERCENT AUTO 14.5 % (3.3-12.6); NEUTROPHILS ABSOLUTE AUTO 5.25 K/uL (1.0-7.6); NEUTROPHILS PERCENT AUTO 64.6 % (40.0-78.1); PLATELET COUNT,PLT 175 K/uL (130-375); RED BLOOD CELL COUNT 4.28 M/uL (4.14-5.76); WHITE BLOOD CELL COUNT,WBC 8.1 K/uL (3.2-11.0)
[2023-04-07 13:01] LABS: CALCIUM 8.3 mg/dL (8.5-10.1); CREATININE 1.6 mg/dL (0.8-1.3); EST CRCL DRUG DOSING (CG) 48.37 mL/min; POTASSIUM,K 4.5 mmol/L (3.6-5.2)
[2023-04-07 13:02] LABS: ANION GAP 15.5 mmol/L (5.0-14.0)
[2023-04-07] MEDS ORDERED: Acetaminophen 500 MG Tab PO ONE (14:29)
== END 2023-04-07 15:48 | disposition home or self-care (01) ==
LOC: JP.ED 12:02
DX: S70.01XA Contusion of right hip, initial encounter (principal); U07.1 COVID-19; I12.9 Hypertensive chronic kidney disease with stage 1 through stage 4 chronic kidney disease, or unspecified chronic kidney disease; N18.31 Chronic kidney disease, stage 3a; D63.1 Anemia in chronic kidney disease; E11.22 Type 2 diabetes mellitus with diabetic chronic kidney disease; E78.00 Pure hypercholesterolemia, unspecified; K21.9 Gastro-esophageal reflux disease without esophagitis; Z86.73 Personal history of transient ischemic attack (TIA), and cerebral infarction without residual deficits; E66.9 Obesity, unspecified; Z79.899 Other long term (current) drug therapy; Z88.1 Allergy status to other antibiotic agents; Z88.6 Allergy status to analgesic agent; Z88.8 Allergy status to other drugs, medicaments and biological substances; Z79.84 Long term (current) use of oral hypoglycemic drugs; W18.30XA Fall on same level, unspecified, initial encounter
CPT/HCPCS: 36415; 71045; 73501; 80048; 85025; 99285; A9270

== ENCOUNTER 2023-04-27 12:25 | Emergency (ER) | payer MEDICARE ==
[2023-04-27 12:45] LABS: BASOPHILS ABSOLUTE AUTO 0.06 K/uL (0.00-0.10); BASOPHILS PERCENT AUTO 0.7 % (0.1-1.3); EOSINOPHILS ABSOLUTE AUTO 0.39 K/uL (0.00-0.40); EOSINOPHILS PERCENT AUTO 4.5 % (0.0-5.4); HEMATOCRIT 36.6 % (38.4-49.7); HEMOGLOBIN 12.2 g/dL (12.9-16.9); IMMATURE GRAN ABSOLUTE AUTO 0.03 K/uL (0.00-0.23); IMMATURE GRAN PERCENT AUTO 0.3 % (0.0-0.7); LYMPHOCYTES ABSOLUTE AUTO 2.67 K/uL (0.8-3.3); LYMPHOCYTES PERCENT AUTO 30.9 % (11.4-47.7); MEAN CORPUSCULAR HEMOGLOBIN 27.7 pg (31.6-35.5); MEAN CORPUSCULAR HGB CONC 33.3 g/dL (31.6-35.5); MONOCYTES ABSOLUTE AUTO 0.49 K/uL (0.20-0.90); MONOCYTES PERCENT AUTO 5.7 % (3.3-12.6); NEUTROPHILS ABSOLUTE AUTO 4.99 K/uL (1.0-7.6); NEUTROPHILS PERCENT AUTO 57.9 % (40.0-78.1); PLATELET COUNT,PLT 205 K/uL (130-375); RED BLOOD CELL COUNT 4.41 M/uL (4.14-5.76); WHITE BLOOD CELL COUNT,WBC 8.6 K/uL (3.2-11.0)
[2023-04-27 13:08] LABS: A/G RATIO 1.1 (1.2-2.2); ALANINE AMINOTRANSFERASE,ALT 36 U/L (12-78); ALBUMIN 3.5 g/dL (3.4-5.0); ALKALINE PHOSPHATASE 62 U/L (46-116); ANION GAP 12.8 mmol/L (5.0-14.0); ASPARTATE AMNIOTRANSFERASE,AST 28 U/L (15-37); BILIRUBIN TOTAL 0.4 mg/dL (0.2-1.0); BLOOD UREA NITROGEN,BUN 19 mg/dL (7-18); CALCIUM 8.9 mg/dL (8.5-10.1); CARBON DIOXIDE,CO2 23 mmol/L (21-32); CHLORIDE,CL 104 mmol/L (100-108); CREATININE 1.3 mg/dL (0.8-1.3); ESTIMATED GFR 61 mL/min (>60); GLUCOSE RANDOM 183 mg/dL (74-106); POTASSIUM,K 4.8 mmol/L (3.6-5.2); PROTEIN TOTAL,TP 6.7 g/dL (6.4-8.2); SODIUM,NA 140 mmol/L (140-148); TROPONIN I HIGH SENSITIVITY 7.9 pg/mL (<=60.3)
[2023-04-27] MEDS ORDERED: Magnesium Sulfate/Water 2 GM in Premix Bag 1 BAG IV ONE (13:22)
[2023-04-27] MEDS ORDERED: Magnesium Oxide 400 MG Tab PO ONE (13:36)
[2023-04-27] MEDS ORDERED: Sodium Chloride 0.9% 500 ML IV SCH (14:45)
[2023-04-27] MEDS ORDERED: Sodium Chloride 0.9% 10 ML Syringe FLUSH PRN (14:57)
[2023-04-27] MEDS ORDERED: Sodium Chloride 0.9% 50 ML IV ONE (14:57)
[2023-04-27] MEDS ORDERED: Iopamidol 755 Mg/ML 100 ML Bottle IV SCH (15:00)
[2023-04-27 17:21] LABS: APPEARANCE,URINE CLEAR (CLEAR); BILIRUBIN,URINE NEGATIVE (NEGATIVE); COLOR,URINE YELLOW (YELLOW); GLUCOSE,URINE NEGATIVE (NEGATIVE); KETONES,URINE NEGATIVE (NEGATIVE); LEUKOCYTE ESTERASE,URINE NEGATIVE (NEGATIVE); NITRITE,URINE NEGATIVE (NEGATIVE); OCCULT BLOOD,URINE NEGATIVE (NEGATIVE); PH,URINE 5.5 (5.0-8.0); PROTEIN,URINE NEGATIVE (NEGATIVE); UROBILINOGEN,URINE 0.2 EU/dL (0.2-1.0)
[2023-04-27 17:25] LABS: BACTERIA,URINE FEW; EPITHELIAL CELLS,URINE FEW; RBC,URINE 0-5 (0-5); WBC,URINE 0-5 (0-5)
[2023-04-27 17:26] LABS: AMORPHOUS SEDIMENT,URINE NOT SEEN; AMPHETAMINES SCREEN, URINE NEGATIVE (NEGATIVE); BARBITURATE SCREEN,URINE NEGATIVE (NEGATIVE); BENZODIAZEPINES SCREEN,URINE NEGATIVE (NEGATIVE); METHADONE SCREEN, URINE NEGATIVE (NEGATIVE); METHAMPHETAMINES SCREEN, URINE NEGATIVE (NEGATIVE); MUCUS,URINE NOT SEEN; OXYCODONE SCREEN,URINE NEGATIVE (NEGATIVE); PROPOXYPHENE SCREEN,URINE NEGATIVE (NEGATIVE); THC SCREEN,URINE 50 NG/ML NEGATIVE (NEGATIVE)
== END 2023-04-27 20:21 ==
LOC: JP.ED 12:25
DX: I95.1 Orthostatic hypotension (principal); E83.42 Hypomagnesemia; I10 Essential (primary) hypertension; E78.00 Pure hypercholesterolemia, unspecified; K21.9 Gastro-esophageal reflux disease without esophagitis; Z86.73 Personal history of transient ischemic attack (TIA), and cerebral infarction without residual deficits; E11.9 Type 2 diabetes mellitus without complications; E66.9 Obesity, unspecified; Z86.16 Personal history of COVID-19; Z79.84 Long term (current) use of oral hypoglycemic drugs; Z79.899 Other long term (current) drug therapy; Z79.82 Long term (current) use of aspirin; Z88.1 Allergy status to other antibiotic agents; Z88.6 Allergy status to analgesic agent; Z88.8 Allergy status to other drugs, medicaments and biological substances
CPT/HCPCS: 36415; 70450; 71045; 71275; 80053; 80305; 80307; 81001; 83735; 84484; 85025; 85379; 93005; 96360; 96361; 99285; A9270; J3490; J7030; Q9967

== ENCOUNTER 2023-07-01 12:28 | Emergency (ER) | payer MEDICARE ==
[2023-07-01 12:47] LABS: BASOPHILS ABSOLUTE AUTO 0.05 K/uL (0.00-0.10); BASOPHILS PERCENT AUTO 0.5 % (0.1-1.3); EOSINOPHILS ABSOLUTE AUTO 0.28 K/uL (0.00-0.40); EOSINOPHILS PERCENT AUTO 2.5 % (0.0-5.4); HEMATOCRIT 36.2 % (38.4-49.7); IMMATURE GRAN ABSOLUTE AUTO 0.05 K/uL (0.00-0.23); IMMATURE GRAN PERCENT AUTO 0.5 % (0.0-0.7); LYMPHOCYTES ABSOLUTE AUTO 2.54 K/uL (0.8-3.3); LYMPHOCYTES PERCENT AUTO 23.1 % (11.4-47.7); MEAN CORPUSCULAR HEMOGLOBIN 27.9 pg (31.6-35.5); MEAN CORPUSCULAR HGB CONC 33.1 g/dL (31.6-35.5); MEAN CORPUSCULAR VOLUME 84.2 fL (81.4-99.0); MONOCYTES ABSOLUTE AUTO 0.68 K/uL (0.20-0.90); MONOCYTES PERCENT AUTO 6.2 % (3.3-12.6); NEUTROPHILS PERCENT AUTO 67.2 % (40.0-78.1); PLATELET COUNT,PLT 193 K/uL (130-375)
[2023-07-01] MEDS: Sodium Chloride 0.9% 1,000 ML IV ONE (13:04)
[2023-07-01] MEDS: Famotidine 20 MG Tab PO ONE (13:29)
[2023-07-01 13:45] LABS: ANION GAP 12.9 mmol/L (5.0-14.0); CALCIUM 8.6 mg/dL (8.5-10.1); CREATININE 1.3 mg/dL (0.8-1.3); EST CRCL DRUG DOSING (CG) 58.73 mL/min; POTASSIUM,K 4.3 mmol/L (3.6-5.2)
== END 2023-07-01 17:22 ==
LOC: JP.ED 12:28
DX: R55 Syncope and collapse (principal); I95.1 Orthostatic hypotension; R21 Rash and other nonspecific skin eruption; I10 Essential (primary) hypertension; K21.9 Gastro-esophageal reflux disease without esophagitis; E78.00 Pure hypercholesterolemia, unspecified; E66.9 Obesity, unspecified; E11.9 Type 2 diabetes mellitus without complications; Z68.34 Body mass index [BMI] 34.0-34.9, adult; Z86.16 Personal history of COVID-19; Z88.8 Allergy status to other drugs, medicaments and biological substances; Z79.82 Long term (current) use of aspirin; Z79.84 Long term (current) use of oral hypoglycemic drugs; Z79.899 Other long term (current) drug therapy
CPT/HCPCS: 36415; 80048; 83735; 84484; 85025; 93005; 93010; 96360; 99283; 99285; A9270; J7030

== ENCOUNTER 2023-09-26 20:29 | Emergency (ER) | payer MEDICARE ==
[2023-09-26 21:38] LABS: APPEARANCE,URINE TURBID (CLEAR); BILIRUBIN,URINE NEGATIVE (NEGATIVE); COLOR,URINE YELLOW (YELLOW); GLUCOSE,URINE NEGATIVE (NEGATIVE); KETONES,URINE TRACE mg/dL (NEGATIVE); LEUKOCYTE ESTERASE,URINE SMALL (NEGATIVE); NITRITE,URINE NEGATIVE (NEGATIVE); OCCULT BLOOD,URINE NEGATIVE (NEGATIVE); PROTEIN,URINE NEGATIVE (NEGATIVE); UROBILINOGEN,URINE 0.2 EU/dL (0.2-1.0)
[2023-09-26 21:39] LABS: AMORPHOUS SEDIMENT,URINE MANY; BACTERIA,URINE MODERATE; EPITHELIAL CELLS,URINE RARE; MUCUS,URINE RARE; RBC,URINE 0-5 (0-5); WBC,URINE 20-30 (0-5)
[2023-09-26 22:27] LABS: BASOPHILS ABSOLUTE AUTO 0.05 K/uL (0.00-0.10); BASOPHILS PERCENT AUTO 0.4 % (0.1-1.3); EOSINOPHILS ABSOLUTE AUTO 0.25 K/uL (0.00-0.40); HEMOGLOBIN 11.7 g/dL (12.9-16.9); IMMATURE GRAN ABSOLUTE AUTO 0.06 K/uL (0.00-0.23); IMMATURE GRAN PERCENT AUTO 0.5 % (0.0-0.7); LYMPHOCYTES ABSOLUTE AUTO 3.02 K/uL (0.8-3.3); LYMPHOCYTES PERCENT AUTO 23.7 % (11.4-47.7); MEAN CORPUSCULAR HEMOGLOBIN 27.9 pg (31.6-35.5); MEAN CORPUSCULAR HGB CONC 33.4 g/dL (31.6-35.5); MEAN CORPUSCULAR VOLUME 83.5 fL (81.4-99.0); MONOCYTES ABSOLUTE AUTO 0.94 K/uL (0.20-0.90); MONOCYTES PERCENT AUTO 7.4 % (3.3-12.6); NEUTROPHILS ABSOLUTE AUTO 8.44 K/uL (1.0-7.6); PLATELET COUNT,PLT 209 K/uL (130-375); RED BLOOD CELL COUNT 4.19 M/uL (4.14-5.76); WHITE BLOOD CELL COUNT,WBC 12.8 K/uL (3.2-11.0)
[2023-09-26 22:47] LABS: ALANINE AMINOTRANSFERASE,ALT 30 U/L (12-78); ALBUMIN 3.4 g/dL (3.4-5.0); ALKALINE PHOSPHATASE 75 U/L (46-116); ASPARTATE AMNIOTRANSFERASE,AST 17 U/L (15-37); BILIRUBIN TOTAL 0.2 mg/dL (0.2-1.0); BLOOD UREA NITROGEN,BUN 24 mg/dL (7-18); CALCIUM 9.4 mg/dL (8.5-10.1); CARBON DIOXIDE,CO2 25 mmol/L (21-32); CHLORIDE,CL 101 mmol/L (100-108); CREATININE 1.4 mg/dL (0.8-1.3); EST CRCL DRUG DOSING (CG) 55.37 mL/min; ESTIMATED GFR 55 mL/min (>60); GLUCOSE RANDOM 102 mg/dL (74-106); POTASSIUM,K 4.1 mmol/L (3.6-5.2); PROTEIN TOTAL,TP 6.9 g/dL (6.4-8.2); SODIUM,NA 137 mmol/L (140-148)
[2023-09-26 22:48] LABS: ANION GAP 15.1 mmol/L (5.0-14.0)
[2023-09-27] MEDS: QUEtiapine 25 MG Tab PO ONE (02:00)
[2023-09-27] MEDS: Acetaminophen 500 MG Tab PO ONE (08:54)
[2023-09-27] MEDS: LORazepam 2 MG/ML SDV IM ONE (12:29)
== END 2023-09-27 19:51 ==
LOC: JP.ED 20:29
DX: S70.01XA Contusion of right hip, initial encounter (principal); M70.61 Trochanteric bursitis, right hip; R41.0 Disorientation, unspecified; R82.71 Bacteriuria; I10 Essential (primary) hypertension; E78.00 Pure hypercholesterolemia, unspecified; K21.9 Gastro-esophageal reflux disease without esophagitis; E11.9 Type 2 diabetes mellitus without complications; E66.9 Obesity, unspecified; Z86.16 Personal history of COVID-19; Z86.73 Personal history of transient ischemic attack (TIA), and cerebral infarction without residual deficits; Z79.899 Other long term (current) drug therapy; Z79.84 Long term (current) use of oral hypoglycemic drugs; Z79.02 Long term (current) use of antithrombotics/antiplatelets; Z88.1 Allergy status to other antibiotic agents; Z88.8 Allergy status to other drugs, medicaments and biological substances; W07.XXXA Fall from chair, initial encounter
CPT/HCPCS: 36415; 70450; 73502; 73700; 73721; 80053; 81001; 85025; 87086; 87088; 96372; 97163; 99284; 99285; A9270; J2060